=== PATIENT | female | born 1965 | race Caucasian/White ===

== ENCOUNTER 2023-09-29 13:19 | Emergency (ER) | payer OTHER, SELFPAY ==
[2023-09-29 13:31] VITALS: BP 154/102
[2023-09-29 13:56] LABS: % Basophils 0.7 % (0-2); % Eosinophils 0.7 % (0-6); % Immature Granulocytes 0.4 % (0-0.5); % Lymphocytes 20.4 % (20.5-51.1); % Monocytes 8.8 % (1.7-9.3); Absolute Basophils 0.1 10^3/uL (0-0.2); Absolute Eosinophils 0.1 10^3/uL (0-0.7); Absolute Lymphocytes 1.9 10^3/uL (1.2-3.4); Absolute Monocytes 0.8 10^3/uL (0.1-0.6); Absolute Neutrophils 6.4 10^3/uL (1.4-6.5); Hematocrit 40.5 % (37.0-47.0); Hemoglobin 14.5 g/dL (12.0-16.0); Mean Corp Hgb Conc. 35.8 g/dL (33.0-37.0); Mean Corpuscular Hgb 34.5 pg (27.0-31.0); Mean Corpuscular Volume 96.4 fL (81.0-99.0); Nucleated Red Blood Cells % 0.2 %; Platelet Count 230 10^3/uL (130-400); Red Cell Dist. Width 15.7 % (11.5-14.5); White Blood Cell Count 9.2 10^3/uL (4.8-10.8)
[2023-09-29 14:11] LABS: ALT (SGPT) 39 U/L (0-35); AST (SGOT) 78 U/L (14-36); Albumin 4.6 g/dl (3.5-5.0); Alkaline Phosphatase 126 U/L (38-126); Blood Urea Nitrogen 6 mg/dl (7-17); Calcium 9.9 mg/dl (8.4-10.2); Carbon Dioxide 25 mmol/L (22-30); Chloride 100 mmol/L (98-107); Glucose 140 mg/dl (70-99); Potassium 4.8 mmol/L (3.5-5.1); Sodium 133 mmol/L (135-145); Total Protein 7.5 g/dl (6.3-8.2); eGFR > 60.00
[2023-09-29 14:12] LABS: Alcohol None Detected
[2023-09-29 15:45] VITALS: BP 126/92
[2023-09-29 15:46] VITALS: BMI 25.7
[2023-09-29] MEDS: ATIVAN 1 MG IV (16:27)
[2023-09-29] MEDS: ZOFRAN 4 MG IV (16:27)
[2023-09-29] MEDS: NSS 1000 IV (16:27)
[2023-09-29 17:00] VITALS: BP 122/82
[2023-09-29 17:17] LABS: Lipase 190 U/L (23-300)
[2023-09-29 18:59] LABS: Urine Albumin Negative (Neg - Trace); Urine Bilirubin Negative (Negative); Urine Character Clear (Clear); Urine Color Yellow; Urine Glucose Negative (Negative); Urine Ketone Negative (Negative); Urine Leukocyte 2+ (Negative); Urine Nitrite Negative (Negative); Urine Occult Blood Negative (Negative); Urine Urobilinogen Negative (Neg - 1+)
[2023-09-29 19:06] LABS: Urine Red Blood Cell 0-2 /HPF (0-2); Urine Squamous Cell >30 /LPF (Few)
[2023-09-29 19:08] LABS: Urine Bacteria Moderate (Negative); Urine White Cell 16-20 /HPF (0-5)
[2023-09-29 19:11] LABS: Amphetamines Negative (Negative); Barbiturates Negative (Negative); Benzodiazepines Positive (Negative); Buprenorphine Negative (Negative); Cocaine Negative (Negative); Marijuana Negative (Negative); Methadone Negative (Negative); Methamphetamines Negative (Negative); Opiates Negative (Negative); Phencyclidine Negative (Negative); Tricyclic Antidepressants Negative (Negative)
[2023-09-29 19:39] LABS: Fentanyl, Urine Negative (Negative)
--- NOTE | 2023-09-29 20:58 | ED.GENMED ---
History of Present Illness
General
Chief Complaint: Dizziness
Source: patient
Exam Limitations: none
Time Seen by Provider: 09/29/23 15:41
Nursing documentation reviewed up to this point in time: agreed with
Travel History
Have you had any contact with someone who has COVID-19?: No
Do you have any symptoms of coronavirus? Fever > 100 degrees, chills, cough, shortness of breath, sore throat, loss of taste or smell, muscle aches, or headache?: No
History of Present Illness
History of Present Illness:
Patient to ED with complaint of unsteady gait, tremors, States she fell summer 2022, hit head during fall. States since then she has had trouble with her gait. She was evaluated at [facility] 2[facility] ago. She was sent to rehab for PT and then
discharged home. States she is not improving. Did not want to return to [facility], Brought to ED by sig other for eval. Denies fever/chills, recent illness. No n/v/d. Eating drinking, sleeping normally.
Past History
Past History
ED Past Medical History: Psychiatric and Other (Hyponatremia)
ED Past Surgical History: Other (Breast surgery)
Social History
Tobacco: Smoker
Alcohol: Daily (glass of wine)
Living: with family
Review of Systems
Review of Systems
Allergies reviewed?: Yes
All Other Systems: ROS reviewed and negative except as documented in HPI and ROS
Constitutional: Reports no symptoms
EENT: Reports no symptoms
Respiratory: Reports no symptoms
Cardiac: Reports no symptoms
ABD/GI: Reports no symptoms
: Reports no symptoms
Musculoskeletal: Reports no symptoms
Skin: Reports no symptoms
Neurological: Reports weakness and other (fine tremor (known history))
Psychiatric: Reports no symptoms
Phy Exam
General Physical Exam
General Presentation: well appearing and no apparent distress
General age: appears stated age
General Skin: warm and dry
General Habitus: normal
General Mental: alert
Cardiovascular Exam
Cardiovascular Exam: regular rate/rhythm and no edema
Pulmonary Exam
Pulmonary Exam: lungs clear and no respiratory distress
Neurological Exam
Neurological Exam: alert, oriented x3, CN II-XII intact, no motor deficits, no sensory deficits and speech normal
Musculoskeletal Exam
Musculoskeletal Exam: full ROM and neuro vasc intact
Skin Exam
Skin Exam: normal color, warm/dry and no rash
Psychiatric Exam
Psychiatric Exam: normal mood/affect
Course
Orders/Labs/Results
Orders:
Orders
09/29/23 13:38
Electrocardiogram (*1) Urgent
Reason for Study: Tachycardia
09/29/23 13:39
EKG- Treatment ONCE
09/29/23 13:47
Alcohol Urgent
Complete Blood Count/With Diff Urgent
Comprehensive Metabolic Panel Urgent
Lipase Urgent
Comment: LIPASE ADDED ON BY FLOOR 4:20PM 09-29-23
09/29/23 16:17
Add On- LAB Urgent
Tests Added?: lipase
Lorazepam [Ativan] 1 mg IV NOW STA
Ondansetron Injectable [Zofran] 4 mg IV NOW STA
09/29/23 16:18
0.9% Sodium Chloride 1000 ml [Nss] 1,000 ml IV BOLUS
09/29/23 17:27
CT Head W/o Iv Contrast Urgent
Comment:
Reason For Exam: unsteady gait
09/29/23 18:53
Fentanyl, Urine Urgent
Urinalysis Reflex To Culture Urgent
Date Specimen was Collected: 09/29/23
Time Specimen was Collected: 16:28
Urine Drug Abuse Screen Urgent
Date Specimen was Collected: 09/29/23
Time Specimen was Collected: 16:28
Urine Microscopic Reflex Cult Urgent
Urine Culture Urgent
GABRIELLA Source: U
Specimen Description:
Date Specimen was Collected: 09/29/23
Time Specimen was Collected: 16:28
Abnormal Lab Results
09/29/23 09/29/23
13:47 18:53
MCH 34.5 H pg
(27.0-31.0)
RDW 15.7 H %
(11.5-14.5)
Absolute Monos (auto) 0.8 H 10^3/uL
(0.1-0.6)
Lymphocytes % 20.4 L %
(20.5-51.1)
Sodium 133 L mmol/L
(135-145)
BUN 6 L mg/dl
(7-17)
Glucose 140 H mg/dl
(70-99)
AST 78 H U/L
(14-36)
ALT 39 H U/L
(0-35)
Leukocyte Esterase Rfl 2+ A
(Negative)
Urine WBC (Reflex) 16-20 A /HPF
(0-5)
Urine Bacteria (Reflex) Moderate A
(Negative)
U Benzodiazepines Scrn Positive H
(Negative)
09/29/23 13:47
09/29/23 13:47
Vital Signs
Initial and Last Documented VS:
Initial Vital Signs
Temp Pulse Resp BP Pulse Ox
97.5 F 124 16 154/102 98
09/29/23 13:31 09/29/23 13:31 09/29/23 13:31 09/29/23 13:31 09/29/23 13:31
Last Documented Vital Signs
Temp Pulse Resp BP Pulse Ox
97.5 F 96 20 122/82 99
09/29/23 13:31 09/29/23 18:53 09/29/23 17:15 09/29/23 17:00 09/29/23 17:45
*Radiology
Radiology exam reviewed: radiology read reviewed
*Pulse Oximetry
Patient hypoxic: no
*Critical Care Note
Total Time (30-74mins, 75-104mins- exclusive of procedures): Not Applicable
ED Attending Note
-
Portions of this chart may have been created with voice recognition software.� Occasional wrong word or��sound alike� substitutions may have occurred due to the inherent limitations of voice recognition software.
Discharge Plan
Departure
Patient Disposition: Home (Routine Discharge)
Date of Disposition: 09/29/23
Time of Disposition: 19:38
Patient with high blood pressure during this ER visit?: No
Condition: Good
Covid-19: Not Applicable
Discharge Problem:
Weakness
Instructions: Weakness
Prescriptions:
New
lorazepam [Ativan] 0.5 mg tablet
0.5 mg PO BID PRN (Reason: anxiety) Qty: 3 0RF
No Action
No Meds [No Current Medications]
0
ketorolac 10 MG tablet
10 mg PO Q6HPRN PRN (Reason: pain) Qty: 20 0RF
levofloxacin 500 MG tablet
500 mg PO DAILY Qty: 10 0RF
hydrocodone-acetaminophen [Vicodin] 1 EACH tablet
1 ea PO Q6H PRN (Reason: pain) Qty: 15 0RF
Referrals:
Fernando Topete MD [Active] - Call in 1-3 days for appt
Sue Espinal DO [Family Provider] - Tomorrow
Interventions
Interventions:
ED- Fall Risk Assessment Last Done: 09/29/23 15:40
*ED COVID-19 Vaccine History Last Done: 09/29/23 13:31
*Nursing Disposition Last Done: 09/29/23 19:49
ED- Neurological Assessment Last Done: 09/29/23 15:40
ED Swallowing Screen Last Done: 09/29/23 17:19
Discharge Date and Time
Discharge Date/Time: 09/29/23 19:54
Print Language: KHMER
== END 2023-09-29 19:54 | disposition home or self-care (01) ==
LOC: EMR 13:19
PROVIDERS: Emergency Medicine; Nurse Practitioner; EMERGENCY PHYSICIAN Emergency Medicine; FAMILY PHYSICIAN Family Medicine
DX: R53.1 Weakness (principal); R42 Dizziness and giddiness; R25.1 Tremor, unspecified; R26.81 Unsteadiness on feet; F17.200 Nicotine dependence, unspecified, uncomplicated
CPT/HCPCS: 99285; 96374; 96375; 96361; 70450; 80053; 80306; 80307; 81003; 81015; 82077; 83690; 85025; 87086; 93005

== ENCOUNTER 2023-12-20 11:47 | Emergency (ER) | payer OTHER, SELFPAY ==
[2023-12-20 11:52] VITALS: BP 143/91
[2023-12-20 12:03] VITALS: BP 127/86
[2023-12-20] MEDS: NSS 1000 IV (12:46)
[2023-12-20] MEDS: TORADOL 15 MG IV (12:46)
[2023-12-20 12:53] LABS: % Basophils 0.6 % (0-2); % Eosinophils 0.6 % (0-6); % Immature Granulocytes 0.6 % (0-0.5); % Lymphocytes 24.8 % (20.5-51.1); % Monocytes 9.1 % (1.7-9.3); % Neutrophils 64.3 % (42.2-75.2); Absolute Lymphocytes 1.6 10^3/uL (1.2-3.4); Absolute Monocytes 0.6 10^3/uL (0.1-0.6); Absolute Neutrophils 4.2 10^3/uL (1.4-6.5); Hematocrit 39.2 % (37.0-47.0); Hemoglobin 14.3 g/dL (12.0-16.0); Mean Corp Hgb Conc. 36.5 g/dL (33.0-37.0); Mean Corpuscular Hgb 32.6 pg (27.0-31.0); Mean Corpuscular Volume 89.5 fL (81.0-99.0); Nucleated Red Blood Cells % 0 %; Platelet Count 252 10^3/uL (130-400); Red Blood Cell Count 4.38 10^6/uL (4.20-5.40); Red Cell Dist. Width 11.9 % (11.5-14.5); White Blood Cell Count 6.6 10^3/uL (4.8-10.8)
--- NOTE | 2023-12-20 12:54 | ED.GENMED ---
History of Present Illness
General
Chief Complaint: Chest Pain
Time Seen by Provider: 12/20/23 12:22
History of Present Illness
History of Present Illness:
58-year-old female with history of tobacco abuse presents to the emergency department for evaluation of pain and swelling to the left upper quadrant of the abdomen for the past 4 days. Pain is worse with movement and worse with deep breathing.
Denies any fevers, chills, sweats, nausea, vomiting, or diarrhea. Prior abdominal surgery includes tubal ligation. She is also concerned for generalized bloating to the abdomen is ongoing for quite some time and states that her primary care
physician was going to send her for an ultrasound for this. Denies any acute traumatic injuries to the abdomen. Does endorse urinary urgency
Past History
Past History
ED Past Medical History: Psychiatric and Other (Hyponatremia)
ED Past Surgical History: Other (Breast surgery)
Social History
Tobacco: Smoker
Alcohol: Daily (glass of wine)
Living: with family
Review of Systems
Review of Systems
Allergies reviewed?: Yes
All Other Systems: ROS reviewed and negative except as documented in HPI and ROS
Phy Exam
Physical Exam
Physical Exam:
GEN: Well appearing, NAD, WDWN
Eyes: PERRLA, EOMs intact, no scleral icterus
HENT: NCAT, oral mucosa moist
Lungs: CTAB, no wheezes, rales, rhonchi, normal chest wall excursion
Cardiac: RRR, no M/R/G, no peripheral edema. Radial pulses 2+ bilat
Abdomen: Abdomen is diffusely soft with tenderness to the left flank superficially to the floating ribs with palpable soft tissue swelling, no masses, no other abdominal tenderness
Neuro: AO x 3
MSK: No gross deformity or ecchymosis. No edema. No digital clubbing
Skin: No rashes, petechiae. Normal color, no pallor or jaundice.
Psych: Calm, cooperative, proper hygiene
Scores
Heart Score for Chest Pain Patients
STEMI patient?: Not applicable
History: Slightly or Non-Suspicious
ECG: Normal
Age: </= 45 years
Risk Factors: No Risk Factors
Troponin: </= Normal Limit
Heart Score for Chest Pain Patients: 0
Heart Score Risk: 2.5% MACE over next 6 weeks
Course
Orders/Labs/Results
Orders:
Orders
12/20/23 11:57
Electrocardiogram (*1) Urgent
Reason for Study: Shortness of Breath
EKG- Treatment ONCE
12/20/23 12:38
CT Abd/Pel (IV only)-DH only Urgent
Comment:
Reason For Exam: L flank pain
0.9% Sodium Chloride 1000 ml [Nss] 1,000 ml IV BOLUS
Ketorolac [Toradol] 15 mg IV NOW STA
12/20/23 12:44
Complete Blood Count/With Diff Urgent
Comprehensive Metabolic Panel Urgent
12/20/23 14:55
Urinalysis Reflex To Culture Urgent
Date Specimen was Collected: 12/20/23
Time Specimen was Collected: 14:53
Urine Microscopic Reflex Cult Urgent
Urine Culture Urgent
GABRIELLA Source: U
Specimen Description:
Date Specimen was Collected: 12/20/23
Time Specimen was Collected: 14:53
Abnormal Lab Results
12/20/23 12/20/23
12:44 14:55
MCH 32.6 H pg
(27.0-31.0)
Immature Gran % 0.6 H %
(0-0.5)
Sodium 129 L mmol/L
(135-145)
Carbon Dioxide 21 L mmol/L
(22-30)
BUN 5 L mg/dl
(7-17)
Glucose 115 H mg/dl
(70-99)
AST 38 H U/L
(14-36)
Leukocyte Esterase Rfl 1+ A
(Negative)
12/20/23 12:44
12/20/23 12:44
Vital Signs
Initial and Last Documented VS:
Initial Vital Signs
Temp Pulse Resp BP Pulse Ox
97.8 F 116 20 143/91 97
12/20/23 11:52 12/20/23 11:52 12/20/23 11:52 12/20/23 11:52 12/20/23 11:52
Last Documented Vital Signs
Temp Pulse Resp BP Pulse Ox
97.8 F 95 22 122/87 97
12/20/23 11:52 12/20/23 15:00 12/20/23 15:00 12/20/23 15:00 12/20/23 14:00
MDM/Problems Addressed
MDM/Problems Addressed:
58-year-old female presents with flank pain. She has easily reproduced pain superficially overlying the left floating ribs. Imaging reveals no acute pathology, likely musculoskeletal/chest wall strain. NSAIDs did provide temporary relief. Will
prescribe a course of NSAIDs and recommend primary care follow-up for any persistent symptoms
*Critical Care Note
Total Time (30-74mins, 75-104mins- exclusive of procedures): Not Applicable
ED Attending Note
-
Portions of this chart may have been created with voice recognition software.� Occasional wrong word or��sound alike� substitutions may have occurred due to the inherent limitations of voice recognition software.
Discharge Plan
Departure
Patient Disposition: Home (Routine Discharge)
Date of Disposition: 12/20/23
Time of Disposition: 15:17
Patient with high blood pressure during this ER visit?: No
Discharge Problem:
Abdominal wall pain in left flank
Instructions: Flank Pain ED
Prescriptions:
New
diclofenac sodium 75 mg tablet,delayed release (DR/EC)
75 mg PO BID Qty: 20 0RF
No Action
No Meds [No Current Medications]
0
ketorolac 10 MG tablet
10 mg PO Q6HPRN PRN (Reason: pain) Qty: 20 0RF
levofloxacin 500 MG tablet
500 mg PO DAILY Qty: 10 0RF
hydrocodone-acetaminophen [Vicodin] 1 EACH tablet
1 ea PO Q6H PRN (Reason: pain) Qty: 15 0RF
lorazepam [Ativan] 0.5 mg tablet
0.5 mg PO BID PRN (Reason: anxiety) Qty: 3 0RF
Referrals:
Sue Espinal DO [Family Provider] -
Activity Restrictions/Additional Instructions:
Follow-up with your primary doctor pain persists
Interventions
Interventions:
*Risk Screen - Suicide Last Done: 12/20/23 11:49
*General Assessment Last Done: 12/20/23 11:49
*Neglect/Abuse Screening Last Done: 12/20/23 11:49
*ED COVID-19 Vaccine History Last Done: 12/20/23 11:49
ED- Cardiac Assessment Last Done: 12/20/23 12:06
Discharge Date and Time
Print Language: BOTSWANAN
[2023-12-20 13:00] VITALS: BP 102/84
[2023-12-20 13:07] LABS: ALT (SGPT) 31 U/L (0-35); AST (SGOT) 38 U/L (14-36); Albumin 3.9 g/dl (3.5-5.0); Alkaline Phosphatase 119 U/L (38-126); Blood Urea Nitrogen 5 mg/dl (7-17); Calcium 9.4 mg/dl (8.4-10.2); Carbon Dioxide 21 mmol/L (22-30); Chloride 100 mmol/L (98-107); Glucose 115 mg/dl (70-99); Sodium 129 mmol/L (135-145); Total Bilirubin 0.8 mg/dl (0.2-1.3); Total Protein 6.3 g/dl (6.3-8.2); eGFR > 60.00
[2023-12-20 14:00] VITALS: BP 120/77
[2023-12-20 15:00] VITALS: BP 122/87
[2023-12-20 15:10] LABS: Urine Albumin Trace (Neg - Trace); Urine Bilirubin Negative (Negative); Urine Character Clear (Clear); Urine Color Yellow; Urine Glucose Negative (Negative); Urine Ketone Negative (Negative); Urine Leukocyte 1+ (Negative); Urine Nitrite Negative (Negative); Urine Occult Blood Negative (Negative); Urine Specific Gravity 1.005 (<1.030); Urine Urobilinogen Negative (Neg - 1+); Urine pH 6.5 (5.0-9.0)
[2023-12-20 15:21] LABS: Urine Squamous Cell >30 /LPF (Few)
[2023-12-20 15:22] LABS: Urine Red Blood Cell 0-2 /HPF (0-2)
== END 2023-12-20 15:23 | disposition home or self-care (01) ==
LOC: EMR 11:47
PROVIDERS: Physician Assistant; EMERGENCY PHYSICIAN Emergency Medicine; FAMILY PHYSICIAN Family Medicine
DX: R10.12 Left upper quadrant pain (principal); F17.200 Nicotine dependence, unspecified, uncomplicated
CPT/HCPCS: 99284; 96374; 96361; 74177; 80053; 81003; 81015; 85025; 87086; 93005; Q9967

== ENCOUNTER 2024-05-06 23:17 | Observation (INO) | payer OTHER, SELFPAY ==
[2024-05-06 16:56] VITALS: BP 131/95
[2024-05-06 17:34] VITALS: BP 121/89
[2024-05-06 18:00] VITALS: BP 121/77
--- NOTE | 2024-05-06 18:20 | ED.GENMED ---
History of Present Illness
General
Chief Complaint: Breathing Problem
Source: patient
Exam Limitations: none
Time Seen by Provider: 05/06/24 18:00
History of Present Illness
History of Present Illness:
This is a 58 year old female that comes in with c/o SOB. States that her sister passed in February and prior to this she had stopped drinking. States that at first it was 2 glasses of wine and the it increased to daily. States that she went to see
the PCP today as she is SOB and can't take a deep breath. States that this has been going on for a month. States that she also has pain in the right shoulder area. State she had diarrhea today but she feels that this is form drinking. Denies any
fever, chills, chest pain, abd pain, nausea, vomiting, headache, dizziness, urinary burning.
Past History
Past History
ED Past Medical History: Psychiatric (Anxiety, Bipolar) and Other (Hyponatremia); Negative Asthma, HTN, Hypercholesterolemia or NIDDM
ED Past Surgical History: Gynecological (Tubal) and Other (Breast surgery, Monty lumpectomy)
Social History
Tobacco: Smoker
Alcohol: Daily (Wine 6 glasses)
Personal:
Living: alone
Review of Systems
Review of Systems
All Other Systems: ROS reviewed and negative except as documented in HPI and ROS
Constitutional: Reports no symptoms; Denies fever or chills
EENT: Reports no symptoms
Respiratory: Reports trouble breathing; Denies cough
Cardiac: Reports no symptoms; Denies chest pain
ABD/GI: Reports diarrhea; Denies abdominal pain, nausea or vomiting
: Reports no symptoms; Denies dysuria, frequency or urgency
Musculoskeletal: Reports other (Right posterior shoulder pain)
Skin: Reports no symptoms
Neurological: Reports no symptoms; Denies dizzy or headache
Psychiatric: Reports no symptoms
Phy Exam
General Physical Exam
General Presentation: mild distress
General age: appears stated age
General Skin: warm and dry
General Habitus: normal
General Mental: alert
General Hydration: dry mucous membranes
ENT Exam
ENT Exam: TM's normal, pharynx normal and neck supple
Eye Exam
Eye Exam: EOMI
Cardiovascular Exam
Cardiovascular Exam: regular rate/rhythm, no edema and normal peripheral pulses
Pulmonary Exam
Pulmonary Exam: lungs clear, no respiratory distress, no rales, chest non tender, no crackles, no rhonchi, no wheezing and other (Occasional dry cough noted)
Gastrointestinal Exam
Gastrointestinal Exam: normal bowel sounds, non tender, soft, no organomegaly, no pulsatile mass and non distended
Musculoskeletal Exam
Musculoskeletal Exam: full ROM and no edema
Skin Exam
Skin Exam: normal color, warm/dry, no rash and no petechia
Psychiatric Exam
Psychiatric Exam: normal mood/affect
Scores
Heart Failure Risk
Heart Failure Risk Score: Not Applicable
Course
Orders/Labs/Results
Orders:
Orders
05/06/24 17:04
EKG [Electrocardiogram (*1)] Urgent
Reason for Study: Shortness of Breath
EKG- Treatment ONCE
05/06/24 18:19
CT Chest Pe Study Urgent
Comment:
Reason For Exam: SOB, Can't take a deep breath
05/06/24 18:20
0.9% Sodium Chloride 1000 ml [Nss] 1,000 ml IV BOLUS
Lorazepam [Ativan] 1 mg IV NOW STA
05/06/24 18:33
Alcohol Urgent
Complete Blood Count/With Diff Urgent
Comprehensive Metabolic Panel Urgent
Lipase Urgent
Comment: ADD ON
Prothrombin Time Urgent
Troponin I Urgent
05/06/24 19:31
Add On- LAB Urgent
Tests Added?: Lipase
Abnormal Lab Results
05/06/24
18:33
MCH 35.0 H pg
(27.0-31.0)
Sodium 129 L mmol/L
(135-145)
Carbon Dioxide 19 L mmol/L
(22-30)
BUN 2 L mg/dl
(7-17)
Creatinine 0.5 L mg/dL
(0.6-1.0)
Glucose 114 H mg/dl
(70-99)
AST 117 H U/L
(14-36)
ALT 71 H U/L
(0-35)
Alkaline Phosphatase 146 H U/L
(38-126)
05/06/24 18:33
05/06/24 18:33
Hyponatremia, Carbon dioxide low. Glucose nonfasting. AST/ALT elevation. Alk phos elevation. Alcohol negative, Troponin <0.012, PT 12.3 with INR 0.87
Vital Signs
Initial and Last Documented VS:
Initial Vital Signs
Temp Pulse Resp BP Pulse Ox
97.2 F 105 26 131/95 100
05/06/24 16:56 05/06/24 16:56 05/06/24 16:56 05/06/24 16:56 05/06/24 16:56
Last Documented Vital Signs
Temp Pulse Resp BP Pulse Ox
97.2 F 89 35 121/77 100
05/06/24 16:56 05/06/24 18:45 05/06/24 18:45 05/06/24 18:00 05/06/24 18:15
MDM/Problems Addressed
Differential Diagnosis Includes:
PE, Diabetes, PNA,
MDM/Problems Addressed:
This is a 58 year old female that comes in with c/o SOB. States that this has been going on for about a month.States that she has right shoulder pain and she can't take a deep breath,
Will check labs, CT chest, Give Ativan to relax patient.
Back into see patient. Patient states that she feels a little better. States that she still has the shakes and is SOB. Explained that her Sodium is low and that she is most likely detoxing as she has no alcohol in her system. Will admit. Hospitalist
notified.
Chronic conditions affecting care:
NA
Acute Exacerbation and/or Progression of Chronic Illness:
NA
*Radiology
Radiology exam reviewed: radiology read reviewed (CT- No evidence of pulmonary embolism. No active pulmonary disease. )
*Pulse Oximetry
Patient hypoxic: no
*EKG
Interpreted by ED Provider?: NA
Rate: EKG- N/A
*Drain Cleaner Interpretation
Rate: normal
Heart Rate: 97
Rhythm: sinus
*Critical Care Note
Total Time (30-74mins, 75-104mins- exclusive of procedures): Not Applicable
ED Attending Note
-
Portions of this chart may have been created with voice recognition software.� Occasional wrong word or��sound alike� substitutions may have occurred due to the inherent limitations of voice recognition software.
Discharge Plan
Departure
Patient Disposition: Admit
Date of Disposition: 05/06/24
Time of Disposition: 22:16
Admit to: Med/Surg
Presentation/result/management discussed w/ accepting MD/DO: Hospitalist
Condition: Good
Covid-19: Not Applicable
Discharge Problem:
Acute hyponatremia, SOB (shortness of breath), Alcohol withdrawal
Prescriptions:
No Action
No Meds [No Current Medications]
0
ketorolac 10 MG tablet
10 mg PO Q6HPRN PRN (Reason: pain) Qty: 20 0RF
levofloxacin 500 MG tablet
500 mg PO DAILY Qty: 10 0RF
hydrocodone-acetaminophen [Vicodin] 1 EACH tablet
1 ea PO Q6H PRN (Reason: pain) Qty: 15 0RF
lorazepam [Ativan] 0.5 mg tablet
0.5 mg PO BID PRN (Reason: anxiety) Qty: 3 0RF
diclofenac sodium 75 mg tablet,delayed release (DR/EC)
75 mg PO BID Qty: 20 0RF
Referrals:
Sue Espinal, [Family Provider] -
Interventions
Interventions:
*Risk Screen - Suicide Last Done: 05/06/24 16:56
*General Assessment Last Done: 05/06/24 16:56
*Neglect/Abuse Screening Last Done: 05/06/24 16:56
ED- Fall Risk Assessment Last Done: 05/06/24 18:46
*ED COVID-19 Vaccine History Last Done: 05/06/24 16:56
ED- Cardiac Assessment Last Done: 05/06/24 18:46
ED- Pulmonary Assessment Last Done: 05/06/24 18:46
Discharge Date and Time
Print Language: EQUATORIAL GUINEAN
[2024-05-06] MEDS: ATIVAN 1 MG IV (18:36)
[2024-05-06] MEDS: NSS 1000 IV (18:37)
[2024-05-06 18:38] LABS: % Basophils 0.8 % (0-2); % Eosinophils 0.8 % (0-6); % Immature Granulocytes 0.4 % (0-0.5); % Lymphocytes 23.3 % (20.5-51.1); % Monocytes 8.3 % (1.7-9.3); % Neutrophils 66.4 % (42.2-75.2); Absolute Basophils 0.1 10^3/uL (0-0.2); Absolute Eosinophils 0.1 10^3/uL (0-0.7); Absolute Lymphocytes 1.7 10^3/uL (1.2-3.4); Absolute Monocytes 0.6 10^3/uL (0.1-0.6); Absolute Neutrophils 4.9 10^3/uL (1.4-6.5); Hemoglobin 14.8 g/dL (12.0-16.0); Mean Corp Hgb Conc. 36.1 g/dL (33.0-37.0); Mean Corpuscular Volume 96.9 fL (81.0-99.0); Mean Platelet Volume 8.8 fL (7.4-10.4); Nucleated Red Blood Cells % 0 %; Platelet Count 214 10^3/uL (130-400); Red Blood Cell Count 4.23 10^6/uL (4.20-5.40); Red Cell Dist. Width 12.6 % (11.5-14.5); White Blood Cell Count 7.4 10^3/uL (4.8-10.8)
[2024-05-06 18:46] VITALS: BMI 28.2
[2024-05-06 18:52] LABS: INR 0.87; PT 12.3 Sec (11.4-14.6)
[2024-05-06 18:55] LABS: ALT (SGPT) 71 U/L (0-35); AST (SGOT) 117 U/L (14-36); Albumin 4.5 g/dl (3.5-5.0); Alkaline Phosphatase 146 U/L (38-126); Blood Urea Nitrogen 2 mg/dl (7-17); Calcium 9.7 mg/dl (8.4-10.2); Carbon Dioxide 19 mmol/L (22-30); Chloride 99 mmol/L (98-107); Estimated Creatinine Clearance 95 ml/min; Glucose 114 mg/dl (70-99); Potassium 4.3 mmol/L (3.5-5.1); Sodium 129 mmol/L (135-145); Total Bilirubin 0.7 mg/dl (0.2-1.3); Total Protein 7.2 g/dl (6.3-8.2); eGFR > 60.00
[2024-05-06 18:56] LABS: Alcohol None Detected
[2024-05-06 19:01] LABS: Troponin I < 0.012 ng/ml
[2024-05-06 20:05] LABS: Lipase 134 U/L (23-300)
[2024-05-06 22:29] VITALS: BP 127/83
--- NOTE | 2024-05-06 22:30 | HPS.HSE ---
Family Physician
-
Family Physician: Sue Espinal
Chief Complaint
-
Shortness of breath
History of Present Illness
This is a 58-year-old female was a past medical history of alcohol dependence, anxiety and depression who presents to the emergency department from clinic with shortness of breath.
Patient reports that for about 1 month she has had difficulty catching her breath. She reports anxiety. She stated that she lost her sister 1 month ago and she started smoking and drinking. She has no known history of COPD. She denies any cough.
She denies any audible wheezing. She points to her chest but denies having chest pain pleuritic or otherwise. She has not been having any palpitations. She denies orthopnea PND or lower extremity swelling. Patient reports drinking 5 to 6
glasses of wine every night and she has been doing those regularly for the last 1 month. She reports ongoing anxiety but denies any prior history of DT or withdrawal seizures. She saw her psychiatrist today who asked her to follow-up with her PMD
for shortness of breath. Primary care doctor sent her to the emergency department for evaluation.
In the emergency department she was afebrile, oxygen saturation was 100% on room air. She was tachypneic to 35 but not tachycardic. Blood pressure was 121/77. She was afebrile at 97.2. ECG is sinus rhythm, ayleen 90, without any ST or T wave
changes. Troponin was negative. CBC was completely within normal limits. Electrolytes were notable for a sodium of 129 which is similar to previous. BUN/creatinine were within normal limits. Bicarb was 19. Patient had a CT chest with PE
protocol that was negative for acute PE. There was no evidence of any PE or heart strain. The patient had no other acute pulmonary process.
Medical History
Past Medical History
Past Medical History: Reports HTN, Hypercholesterolemia, NIDDM and Psychiatric (Anxiety, bipolar, alcohol dependence)
Past Surgical History: Reports Gynocological (Tubal ligation) and Other (Bilateral breast lumpectomy)
Social History
Tobacco: Smoker (5 cigarrettes / day)
Alcohol: Daily (5 - 6 glasses of wine)
Drug: None
Personal: Partner
Living: With Family
Employment: Not Employed
Family History
Family History: Not pertinent
Allergies / Home Medications
Allergies reflects when Allergies were last updated in [facility].
Home Medications with original date entered in [facility]
Allergy/Medication List:
Allergies
Allergy/AdvReac Type Severity Reaction Status Date / Time
Penicillins Allergy Unknown Rash Verified 05/06/24 17:01
Home Medications
Fluoxetine 40 mg tablet 1 tablet p.o. daily
Bupropion XL 300 mg tablet 1 tablet p.o. daily
D-amphetamine ER 25 mg tablet 1 tablet p.o. daily
Review of Systems
-
History Source: Patient
Constitutional: Reports No Symptoms
EENT: Reports No Symptoms
Respiratory: Reports Trouble Breathing
Cardiac: Reports No Symptoms
Abdomen/GI: Reports No Symptoms
: Reports No Symptoms
Musculoskeletal: Reports No Symptoms
Skin: Reports No Symptoms
Neurological: Reports No Symptoms
Endocrine: Reports No Symptoms
Hematologic/Lymphatic: Reports No Symptoms
Psych: Reports No Symptoms
Physical Exam
Vital Signs
Vital Signs
Temp Pulse Resp BP Pulse Ox
97.2 F 89 35 121/77 100
05/06/24 16:56 05/06/24 18:45 05/06/24 18:45 05/06/24 18:00 05/06/24 18:15
Physical Exam
General: Well Developed, Well Nourished and Conversant
HEENT: NormoCephalic, Anicteric, Moist mucous membranes, Atraumatic, PERRLA, [place] Conjunctivae and No Ptosis
Respiratory: Clear and Non Labored Respirations (however remains tachypneic)
Cardiac: S1/S2 and Regular Rhythm
Breast: Deferred by me
GI: Soft, Non Tender, Non Distended and Normal Bowel Sounds
Rectal: Deferred by Provider
Genito-urinary: Deferred by me
Musculoskeletal: No Clubbing, No Cyanosis and No Edema
Skin: Warm
Neuro: AO x 3
Hematologic/Lymphatic: No Lymphadenopathy
Psych: Anxious
Laboratory Results
-
05/06/24 18:33
05/06/24 18:33
Laboratory Results
PT 12.3 Sec (11.4-14.6) 05/06/24 18:33
INR 0.87 05/06/24 18:33
Total Bilirubin 0.7 mg/dl (0.2-1.3) 05/06/24 18:33
AST 117 U/L (14-36) H 05/06/24 18:33
ALT 71 U/L (0-35) H 05/06/24 18:33
Alkaline Phosphatase 146 U/L (38-126) H 05/06/24 18:33
Troponin I < 0.012 ng/ml 05/06/24 18:33
Lipase 134 U/L (23-300) 05/06/24 18:33
Data Reviewed
-
CT Scan: Report Reviewed by me
Medical Tests (Nuc Med, Echo, EKG etc): Image Personally Visualized and interpreted
Lab Data: Labs Reviewed by me
Old Records: Reviewed
Impression/Plan
-
IMPRESSION:
Patient with history of anxiety depression, alcohol dependence and chronic hyponatremia presents to the emergency department with complaint of shortness of breath and dyspnea on exertion over the last 1 month. Initial evaluation in the ED including
EKG, troponin CBC and electrolytes shows no acute findings. Had a CT of the chest with PE protocol that was negative for PE and shows no infiltrates or any other intra pulmonary disease. I suspect the patient's presentation is more consistent with
anxiety disorder that is not well-controlled and likely associated with recent grief from the loss of sister due to the coincidence of the symptoms. Unlikely CHF but cannot rule out post Takotsubo cardiomyopathy.
PLAN:
1. SOB - 1month history. No findings c/w COPD, CHF, PE at this time. No chest pain. Unlikely angina. Suspect anxiety
- admit to telemetry
- monitor rhythm x 24 hours
- echocardiogram, bnp and tsh
- ambulatory pulse oximetry
2. Hyponatremia - Na 129. Chronic. Suspect etoh dependence with tea/toast diet. Mild hypovolemia possible.
- IV fluids
- check urine osm, tsh as above, am cortisol
- free water restriction overnight.
3. ETOH dependence - Mild tremors. No prior DT/seizures
- MSAS protocol
- interested in outpatient etoh treatment, case management consult
4. Anxiety
- continue buproprion 300xr, fluoxetine 40 daily
-prn lorazepam
DVT PPX - lovenox sq
Code status - Full Code
[2024-05-06 23:28] VITALS: BP 121/81
[2024-05-06] MEDS: FLUSH (NSS) 1 FLUSH IV (23:29)
[2024-05-06 23:46] LABS: Osmolality Urine 331 mOsm/kg (300-900)
[2024-05-07] VITALS (7 sets, daily range): BP systolic 116–133; BP diastolic 68–94; PULSE 96–110; BMI 25.9
[2024-05-07 00:08] LABS: Urine Sodium 46 mmol/L (30-90)
[2024-05-07] MEDS: ATIVAN 1 MG PO ×3 (02:25→17:29)
[2024-05-07 05:34] LABS: Venous Blood Gas B.E. -1.1 mmol/L (-4 to +4); Venous Blood Gas HCO3 24.8 mmol/L (22-27); Venous Blood Gas O2 Sat % 76.9 %; Venous Blood Gas pCO2 45 mmHg (35-48); Venous Blood Gas pH 7.35 (7.32-7.43); Venous Blood Gas pO2 47 mmHg (30-50)
--- NOTE | 2024-05-07 05:34 | PTCARENOTE ---
Pt admitted to 3W at 0210. Pt aaox3, no c/o pain, and VSS. Pt scoring a 5 for MSAS (see worklist), pt given ativan per protocol. Pt instructed to call staff to use restroom. Pt oriented to room, call stuart within reach, and plan of care ongoing.
[2024-05-07 05:37] LABS: Venous Blood Gas O2 Therapy ROOM AIR
[2024-05-07 06:05] LABS: Blood Urea Nitrogen 4 mg/dl (7-17); Calcium 8.8 mg/dl (8.4-10.2); Carbon Dioxide 22 mmol/L (22-30); Chloride 103 mmol/L (98-107); Estimated Creatinine Clearance 77 ml/min; Glucose 131 mg/dl (70-99); Phosphorus 4.5 mg/dl (2.5-4.5); Potassium 4.1 mmol/L (3.5-5.1); Sodium 133 mmol/L (135-145); eGFR > 60.00
[2024-05-07 06:14] LABS: NT-proBNP 237 pg/ml
[2024-05-07 06:36] LABS: TSH 6.21 uIU/ml (0.47-4.68)
[2024-05-07 06:54] LABS: Hepatitis C Antibody Negative (Negative)
[2024-05-07 07:11] LABS: Folate 5.6 ng/ml (2.76-20); Vitamin B12 542 pg/ml (239-931)
[2024-05-07] MEDS: WELLBUTRIN XL (24 hour extended release) 300 MG PO (08:43)
[2024-05-07] MEDS: PROZAC 40 MG PO (08:43)
[2024-05-07] MEDS: FOLVITE 1 MG PO (08:43)
[2024-05-07] MEDS: THIAMINE INJECTION 200 MG IV ×2 (08:47→20:53)
--- NOTE | 2024-05-07 10:52 | CARDSERVLU ---
Echocardiogram with Lumason completed after protocol screening completed. Allergies verified.
Patent IV site: _Rt hand____
IV site flushed with 0.9% NaCl pre and post administration.
Diluted bolus method utilized to enhance visualization of ventricular grey.
Total volume given: __3.0__ mL
Patient tolerated all procedures well without complications.
--- NOTE | 2024-05-07 13:13 | W.PN.HOSP.TC ---
Today's Communication/Plan
-
Assessment / Plan
Assessment / Plan
shortness of breath, resolved
-without acute evidence
--ct without acute pulmonary disease
-hx of smoking, boyfriend smokes
--?COPD but no wheezing on exam to suspect this
-No hx of TOMAS, stop bang 0
-unlikley pHTN
-check 2d echo
alochol use disorder
-thiaimne
-folate
-msas
hyponatremia
-improving
-continue fluid restriction
awaiting 2d echo
now intrested in alcohol rehab, cm notified, bcares called
Anticipated Discharge: Within 24 hours
Subjective/Interval History
-
Date of Service: May 07, 2024
Seen and examined. No new complaints. No acute overnight events.
Objective Data
-
Labs:
Laboratory Results
05/07/24
05:22
Sodium 133 L
Potassium 4.1
Chloride 103
Carbon Dioxide 22
BUN 4 L
Creatinine 0.7
Glucose 131 H
Calcium 8.8
Vital Signs:
Vital Signs
Temp Pulse Resp BP Pulse Ox
98.1 F 116 17 124/72 94
05/07/24 07:55 05/07/24 07:55 05/07/24 07:55 05/07/24 07:55 05/07/24 07:55
Physical Exam
-
General: Well Developed and Well Nourished
HEENT: Normocephalic and Atraumatic
Respiratory: Clear to Auscultation
GI: Soft, Nontender, Nondistended and Normal Bowel Sounds
Musculoskeletal: No Clubbing, No Cyanosis and No Edema
Neuro: Awake, Alert, Oriented and AO x 3
Psych: Calm
[2024-05-07 13:57] LABS: Urine Albumin Negative (Neg - Trace); Urine Bilirubin Negative (Negative); Urine Character Clear (Clear); Urine Color Yellow; Urine Glucose Negative (Negative); Urine Ketone Negative (Negative); Urine Leukocyte Trace (Negative); Urine Nitrite Negative (Negative); Urine Occult Blood Negative (Negative); Urine Specific Gravity 1.015 (<1.030); Urine Urobilinogen Negative (Neg - 1+)
[2024-05-07 14:25] LABS: Amphetamines Positive (Negative); Barbiturates Negative (Negative); Benzodiazepines Positive (Negative); Buprenorphine Negative (Negative); Cocaine Negative (Negative); Marijuana Negative (Negative); Methadone Negative (Negative); Methamphetamines Negative (Negative); Opiates Negative (Negative); Phencyclidine Negative (Negative); Tricyclic Antidepressants Negative (Negative)
[2024-05-07 14:54] LABS: Fentanyl, Urine Negative (Negative)
[2024-05-07 15:10] LABS: Urine Squamous Cell 16-20 /LPF (Few)
[2024-05-07 15:11] LABS: Urine Amorphous Seen; Urine Red Blood Cell 0-2 /HPF (0-2)
--- NOTE | 2024-05-07 17:21 | CM ---
Alert awake oriented patient who lives with her SO Angel Luis who lives in a 1 story home with 0 steps to enter. She is independent in all activities of daily living.Offered VN she declined.Observation letter given explained. Pt declined to sign letter.Pt
said she will accpet in or out pt alcohol rehab. Boy saw pt from [facility] .
[facility]
Ph[facility]
PCP Dr Espinal
PLAN In or out pt alcohol Rehab
[2024-05-07] MEDS: LOVENOX 40 MG SC (17:29)
[2024-05-08 03:00] VITALS: BP 120/83
[2024-05-08 07:00] VITALS: BP 128/77
[2024-05-08] MEDS: THIAMINE INJECTION 200 MG IV ×2 (09:13→19:55)
[2024-05-08] MEDS: PROZAC 40 MG PO (09:14)
[2024-05-08] MEDS: ATIVAN 1 MG PO ×5 (09:14→17:30)
[2024-05-08] MEDS: FOLVITE 1 MG PO (09:14)
[2024-05-08] MEDS: WELLBUTRIN XL (24 hour extended release) 300 MG PO (09:14)
[2024-05-08 11:00] VITALS: BP 117/79
--- NOTE | 2024-05-08 11:29 | CM ---
Received message from attending that patient is medically stable for discharge. Met with patient who confirmed that she met with Terrie and will be going to [facility] (day partial) in [place]. She denied any issues or concerns. She stated that her
spouse will be in to pick her up and transport her home.
Plan: Case management will continue to follow and assist with discharge planning. Home with f/u at [facility].
[2024-05-08] MEDS: NON-FORMULARY ITEM 1 UNIT PO (12:50)
--- NOTE | 2024-05-08 13:35 | W.PN.HOSP.TC ---
Today's Communication/Plan
-
Discharge home
As needed Combivent started
Outpatient pulmonary follow-up
More than 30 minutes spent in discharge including
Final examination of the patient
Summarizing hospital stay
Instructions for continuing care to all relevant caregivers
Preparation of discharge records, prescriptions, and referral forms
Total time spent (in minutes): 33mins
Assessment / Plan
Assessment / Plan
shortness of breath, resolved
-without acute evidence
--ct without acute pulmonary disease
-hx of smoking, boyfriend smokes
--?COPD but no wheezing on exam to suspect this
-No hx of TOMAS, stop bang 0
-unlikley pHTN
alochol use disorder
-thiaimne
-folate
-msas
hyponatremia
-improving
-continue fluid restriction
awaiting 2d echo
now intrested in alcohol rehab, cm notified, bcares called
-Outpatient follow-up with [facility]
Discharge home
Anticipated Discharge: Today
Subjective/Interval History
-
Date of Service: May 08, 2024
Seen and examined. No new complaints. No acute overnight events.
No evidence of alcohol withdrawal
Denies anxiety agitation tremors hallucinations
Objective Data
-
Vital Signs:
Vital Signs
Temp Pulse Resp BP Pulse Ox
97.8 F 106 20 117/79 96
05/08/24 13:19 05/08/24 13:19 05/08/24 11:00 05/08/24 11:00 05/08/24 11:00
I&O
05/07/24 05/08/24 05/09/24
06:59 06:59 06:59
Intake Total 240 / 240
Balance 240 / 240
Physical Exam
-
General: Well Developed and Well Nourished
HEENT: Normocephalic and Atraumatic
Respiratory: Clear to Auscultation
Cardiac: Regular Rhythm and S1/S2
Skin: Warm
Psych: Calm
--- NOTE | 2024-05-08 13:38 | W.DCSUMMARY ---
Addendum entered and electronically signed by Matt Henning MD 05/09/24 11:03:
Date of discharge 05/09/2024
Original Note:
Discharge Summary
Discharge Data
Date of Admission: 05/06/24
Date of Discharge: 05/08/24
-
Pending Results: No
Hospital Course
58-year-old female was a past medical history of alcohol dependence, anxiety and depression
Presented with shortness of breath unclear as to etiology however did not require oxygen. Long-term smoker with prolonged secondhand smoke presents as well. Will require outpatient pulmonary follow-up. No wheezing therefore no steroids were
indicated. Did not appear volume overloaded therefore did not require Lasix. Will require outpatient pulmonary follow-up with pulmonary function testing. Start on as need combivent
In terms of the hyponatremia this is likely believed to be secondary to alcohol use. Improved with fluid restriction. Continue 48 ounce fluid restriction. Avoid alcohol use. Continue thiamine folate. [facility] follow up with
[facility].
Chest CT
IMPRESSION:
No evidence of pulmonary embolism.
No active pulmonary disease.
2d echo CONCLUSIONS
Normal biventricular size and systolic function without regional wall motion
abnormality. LVEF 65-70%.
No significant valvular disease.
Mildly dilated aortic root (3.8 cm) and ascending aorta (3.9 cm).
No prior study available for comparison.
Discharge Plan
-
Patient Disposition: Home (Routine Discharge)
Discharge Diagnosis/Procedures: Shortness of breath
Hyponatremia
Condition: Good
Diet: As tolerated
Activity: As tolerated
Activity Restrictions/Additional Instructions:
Presented with shortness of breath unclear as to etiology however did not require oxygen. Long-term smoker with prolonged secondhand smoke presents as well. Will require outpatient pulmonary follow-up. No wheezing therefore no steroids were
indicated. Did not appear volume overloaded therefore did not require Lasix. Will require outpatient pulmonary follow-up with pulmonary function testing. Start on as need combivent
In terms of the hyponatremia this is likely believed to be secondary to alcohol use. Improved with fluid restriction. Continue 48 ounce fluid restriction. Avoid alcohol use. Continue thiamine folate. Was evaluated by [facility], to follow up with
[facility].
Chest CT
IMPRESSION:
No evidence of pulmonary embolism.
No active pulmonary disease.
2d echo CONCLUSIONS
Normal biventricular size and systolic function without regional wall motion
abnormality. LVEF 65-70%.
No significant valvular disease.
Mildly dilated aortic root (3.8 cm) and ascending aorta (3.9 cm).
No prior study available for comparison.
Referrals:
Sue Espinal DO [Family Provider] -
Darrion Thornton MD [Active] - in two to four weeks
Prescriptions:
New
thiamine HCl (vitamin B1) 100 mg Tablet
100 mg PO BID Qty: 60 0RF
folic acid 1 mg Tablet
1 mg PO DAILY Qty: 30 0RF
Combivent Respimat 20-100 mcg/actuation mist
1 puff inhalation Q6H PRN (Reason: shortness of breath or wheezing) Qty: 4 0RF
Continued
fluoxetine 40 mg capsule
40 mg PO DAILY
dextroamphetamine-amphetamine 25 mg capsule,extended release 24hr
25 mg PO DAILY
Rx Instructions:
05/07/24: filled #30 capsules/30 days on 04/28/24 at [facility] #[id number]
bupropion HCl 300 mg tablet extended release 24 hr
300 mg PO DAILY
cholecalciferol (vitamin D3) [Vitamin D3] 25 mcg (1,000 unit) Capsule
25 mcg PO DAILY
Changed
hydroxyzine pamoate 25 mg capsule
25 mg PO DAILY Qty: 10 0RF
Discharge Orders:
Discharge Patient (As Directed); Ordered 05/08/24
Ordered By: Matt Henning
Discharge Date and Time
Print Language: MONGOLIAN
[2024-05-08 15:00] VITALS: BP 130/84
[2024-05-08] MEDS: SENOKOT-S 1 TABLET PO (17:30)
[2024-05-08] MEDS: LOVENOX 40 MG SC (17:30)
[2024-05-08 23:00] VITALS: BP 117/81
[2024-05-09 07:29] VITALS: BP 121/83
[2024-05-09] MEDS: PROZAC 40 MG PO (07:34)
[2024-05-09] MEDS: WELLBUTRIN XL (24 hour extended release) 300 MG PO (07:34)
[2024-05-09] MEDS: THIAMINE INJECTION 200 MG IV (07:34)
[2024-05-09] MEDS: FOLVITE 1 MG PO (07:34)
[2024-05-09 07:42] VITALS: BP 125/87; PULSE 108
[2024-05-09 07:45] VITALS: BP 130/83; PULSE 106
[2024-05-09 07:47] VITALS: BP 130/83; PULSE 106
[2024-05-09 08:30] VITALS: BP 124/85
--- NOTE | 2024-05-09 10:58 | W.PN.HOSP.TC ---
Today's Communication/Plan
-
DC home
More than 30 minutes spent in discharge including
Final examination of the patient
Summarizing hospital stay
Instructions for continuing care to all relevant caregivers
Preparation of discharge records, prescriptions, and referral forms
Total time spent (in minutes): 33mins
Assessment / Plan
Assessment / Plan
shortness of breath, resolved
-without acute evidence
--ct without acute pulmonary disease
-hx of smoking, boyfriend smokes
--?COPD but no wheezing on exam to suspect this
-No hx of TOMAS, stop bang 0
-unlikley pHTN
DC held due to high MSAS needing ativan
-Today per bedside nursing stgaff and MSAS documentation of 2, and Ms,. Narda saying she feels betgter, some tremors, she woul dlike to go home
-DC home
alochol use disorder
-thiaimne
-folate
-msas
hyponatremia
-improving
-continue fluid restriction
awaiting 2d echo
now intrested in alcohol rehab, cm notified, bcares called
-Outpatient follow-up with [facility]
Discharge home
Anticipated Discharge: Today
Subjective/Interval History
-
Date of Service: May 09, 2024
seen and examined
no new complaints
no acute overnight events
Objective Data
-
Vital Signs:
Vital Signs
Temp Pulse Resp BP Pulse Ox
97.8 F 84 16 121/83 97
05/09/24 07:29 05/09/24 07:29 05/09/24 07:29 05/09/24 07:29 05/09/24 07:29
I&O
05/08/24 05/09/24 05/10/24
06:59 06:59 06:59
Intake Total 240 / 240 840 / 840 480 / 480
Balance 240 / 240 840 / 840 480 / 480
Physical Exam
-
General: Well Developed and Well Nourished
HEENT: Normocephalic and Atraumatic
Respiratory: Clear to Auscultation
Cardiac: Regular Rhythm and S1/S2
GI: Soft, Nontender, Nondistended and Normal Bowel Sounds
Neuro: Awake, Alert, Oriented and AO x 3
Psych: Calm
== END 2024-05-09 12:00 | disposition home or self-care (01) ==
LOC: 3 WEST ACU 23:17
PROVIDERS: Clinical Nurse Specialist Family Health; ADMITTING PHYSICIAN Internal Medicine; ATTENDING PHYSICIAN Hospitalist; EMERGENCY PHYSICIAN Emergency Medicine; FAMILY PHYSICIAN Family Medicine
DX: E87.1 Hypo-osmolality and hyponatremia (principal); R06.02 Shortness of breath; M25.511 Pain in right shoulder; R19.7 Diarrhea, unspecified; F17.200 Nicotine dependence, unspecified, uncomplicated; F31.9 Bipolar disorder, unspecified; F41.9 Anxiety disorder, unspecified; J44.9 Chronic obstructive pulmonary disease, unspecified; R25.1 Tremor, unspecified; F10.239 Alcohol dependence with withdrawal, unspecified; E78.00 Pure hypercholesterolemia, unspecified; I10 Essential (primary) hypertension; E11.9 Type 2 diabetes mellitus without complications; Z88.0 Allergy status to penicillin
CPT/HCPCS: 71275; 80048; 80053; 80306; 80307; 81003; 81015; 82077; 82533; 82607; 82746; 82805; 83690; 83735; 83880; 83935; 84100; 84300; 84443; 84484; 85025; 85610; 86803; 87798; 93005; 93306; 94761; 96361; 96374; 99285; 99406; G0378; Q9950; Q9967

== ENCOUNTER 2024-10-06 16:14 | Inpatient (IN) | payer MEDICARE, OTHER, SELFPAY ==
[2024-10-06] VITALS (12 sets, daily range): BP systolic 105–148; BP diastolic 69–133; BMI 25.7; BMI 27.1
[2024-10-06 13:52] LABS: % Basophils 0.6 % (0-2); % Eosinophils 0.1 % (0-6); % Immature Granulocytes 0.3 % (0-0.5); % Lymphocytes 10.2 % (20.5-51.1); % Monocytes 8.6 % (1.7-9.3); % Neutrophils 80.2 % (42.2-75.2); Absolute Lymphocytes 0.7 10^3/uL (1.2-3.4); Absolute Monocytes 0.6 10^3/uL (0.1-0.6); Absolute Neutrophils 5.5 10^3/uL (1.4-6.5); Hematocrit 41.3 % (37.0-47.0); Mean Corp Hgb Conc. 36.3 g/dL (33.0-37.0); Mean Corpuscular Hgb 34.4 pg (27.0-31.0); Mean Corpuscular Volume 94.7 fL (81.0-99.0); Mean Platelet Volume 9.2 fL (7.4-10.4); Nucleated Red Blood Cells % 0 %; Platelet Count 118 10^3/uL (130-400); Red Blood Cell Count 4.36 10^6/uL (4.20-5.40); Red Cell Dist. Width 12.7 % (11.5-14.5); White Blood Cell Count 6.9 10^3/uL (4.8-10.8)
[2024-10-06] MEDS: ATIVAN 1 MG IV ×2 (13:52→16:03)
[2024-10-06 14:02] LABS: ALT (SGPT) 135 U/L (0-35); AST (SGOT) 462 U/L (14-36); Albumin 4.2 g/dl (3.5-5.0); Alkaline Phosphatase 145 U/L (38-126); Blood Urea Nitrogen < 2 mg/dl (7-17); Calcium 9.1 mg/dl (8.4-10.2); Carbon Dioxide 23 mmol/L (22-30); Chloride 104 mmol/L (98-107); Estimated Creatinine Clearance 89 ml/min; Glucose 154 mg/dl (70-99); Lipase 103 U/L (23-300); Potassium 4.6 mmol/L (3.5-5.1); Sodium 134 mmol/L (135-145); Total Bilirubin 1.2 mg/dl (0.2-1.3); Total Protein 7.1 g/dl (6.3-8.2); eGFR > 60.00
[2024-10-06 14:05] LABS: Alcohol None Detected
[2024-10-06 14:14] LABS: Magnesium 1.6 mg/dl (1.6-2.3)
--- NOTE | 2024-10-06 14:19 | ED.GENMED ---
History of Present Illness
General
Chief Complaint: Breathing Problem
Source: patient and spouse
Exam Limitations: none
Time Seen by Provider: 10/06/24 13:44
Nursing documentation reviewed up to this point in time: agreed with
History of Present Illness
History of Present Illness:
59-year-old female smoker half a pack a day drinker 2 large glasses of wine a day bipolar disorder presents with shakiness shortness of breath cough has not smoked or drank alcohol in 3 days, states his symptoms started before she stopped drinking
and smoking but definitely worsened since that, no seizures no fever no hemoptysis she has been compliant with her psychiatric meds no fever chills
Past History
Past History
ED Past Medical History: Psychiatric (Anxiety, Bipolar) and Other (Hyponatremia); Negative Asthma, HTN, Hypercholesterolemia or NIDDM
ED Past Surgical History: Gynecological (Tubal) and Other (Breast surgery, Monty lumpectomy)
Social History
Tobacco: Smoker
Alcohol: Daily (Wine 6 glasses)
Drug: None
Personal:
Living: alone
Employment: Employed
Review of Systems
Review of Systems
All Other Systems: Not applicable
Constitutional: Reports fatigue; Denies fever or chills
EENT: Reports no symptoms
Respiratory: Reports cough and trouble breathing
Cardiac: Reports palpitations; Denies chest pain
ABD/GI: Reports nausea
: Reports no symptoms
Musculoskeletal: Reports no symptoms
Skin: Reports no symptoms
Neurological: Reports dizzy and weakness
Endocrine: Reports no symptoms
Hematologic/Lymphatic: Reports no symptoms
Psychiatric: Reports no symptoms; Denies depression, suicidal or hallucinations
Phy Exam
Physical Exam
Physical Exam:
Physical Exam
General: 59-year-old female looks older than stated age coughing strong smell of smoke tremulous
Neck: Lips are dry
Heart: Regular
Lungs: Wheeze bilateral
Abdomen: Soft not
Neuro: alert and oriented. no focal neurological deficits tremulous, oriented to person place
Skin: no rash
Psychiatric: Cooperative slightly disheveled
Extremities: no edema. no calf tenderness.
Scores
Heart Failure Risk
Heart Failure Risk Score: Not Applicable
Course
Orders/Labs/Results
Orders:
Orders
10/06/24 13:13
Electrocardiogram (*1) Urgent
Reason for Study: Shortness of Breath
EKG- Treatment ONCE
10/06/24 13:40
Alcohol Urgent
Complete Blood Count/With Diff Urgent
Comprehensive Metabolic Panel Urgent
Lipase Urgent
Magnesium Urgent
Comment: ADD ON
10/06/24 13:49
Lorazepam [Ativan] 1 mg IV NOW STA
10/06/24 13:50
Add On- LAB Urgent
Tests Added?: magnesium
0.9% Sodium Chloride 1000 ml [Nss] 1,000 ml Mvi, Adult [Multivitamin] 10 ml Thiamine Injection 100 mg IV 250 mls/hr
CR Chest - 2 Views Urgent
Comment:
Reason For Exam: sob
10/06/24 14:15
Ipratropium/Albuterol Sulfate [Duoneb] 3 ml INH R NOW STA
Ondansetron Injectable [Zofran] 4 mg IV NOW STA
Abnormal Lab Results
10/06/24
13:40
MCH 34.4 H pg
(27.0-31.0)
Plt Count 118 L 10^3/uL
(130-400)
Absolute Lymphs (auto) 0.7 L 10^3/uL
(1.2-3.4)
Neutrophils % 80.2 H %
(42.2-75.2)
Lymphocytes % 10.2 L %
(20.5-51.1)
Sodium 134 L mmol/L
(135-145)
BUN < 2 L mg/dl
(7-17)
Glucose 154 H mg/dl
(70-99)
AST 462 H U/L
(14-36)
ALT 135 H U/L
(0-35)
Alkaline Phosphatase 145 H U/L
(38-126)
10/06/24 13:40
10/06/24 13:40
Vital Signs
Initial and Last Documented VS:
Initial Vital Signs
Temp Pulse Resp Pulse Ox
98.0 F 136 16 96
10/06/24 13:10 10/06/24 13:10 10/06/24 13:10 10/06/24 13:10
Last Documented Vital Signs
Temp Pulse Resp Pulse Ox
98.0 F 136 16 96
10/06/24 13:10 10/06/24 13:10 10/06/24 13:10 10/06/24 13:10
MDM/Problems Addressed
Differential Diagnosis Includes:
Alcohol withdrawal, COPD exacerbation pneumonia electrolyte abnormality
MDM/Problems Addressed:
Tremor shortness of breath cough
Chronic conditions affecting care: COPD, Psychiatric illness and Other (Alcohol )
Acute Exacerbation and/or Progression of Chronic Illness: COPD, Psychiatric illness and Other (Alcohol)
*Radiology
Radiology exam reviewed: preliminary read by ED provider
*Pulse Oximetry
Patient hypoxic: no
*EKG
Interpreted by ED Provider?: Yes
Interpretation: abnormal
Comparison EKG: no comparison EKG present
Heart Rate: 78
Rate: normal
Rhythm: sinus
Ischemia: non-specific ST changes
*Measurement Advisor Interpretation
Rate: normal
Interpretation: normal
Heart Rate: 88
Rhythm: sinus
*Critical Care Note
Total Time (30-74mins, 75-104mins- exclusive of procedures): Not Applicable
Data Reviewed
Review of Other/Old Records Reveals: Labs, Records and Discharge Summary
Source: patient, records and spouse
Update Note
Update Note:
3 PM patient feeling better labs are noted chest x-ray noted
Suspect this combination of COPD and alcohol withdrawal will hold on steroids at this time does have a history of mental illness,
ED Attending Note
-
Portions of this chart may have been created with voice recognition software.� Occasional wrong word or��sound alike� substitutions may have occurred due to the inherent limitations of voice recognition software.
Discharge Plan
Departure
Patient Disposition: Admit
Date of Disposition: 10/06/24
Time of Disposition: 15:04
Admit to: Telemetry
Presentation/result/management discussed w/ accepting MD/DO: Hospitalist
Patient with high blood pressure during this ER visit?: Yes
Condition: Fair
Covid-19: Not Applicable
Discharge Problem:
Acute bronchitis, SOB (shortness of breath), Alcohol withdrawal syndrome
Prescriptions:
No Action
fluoxetine 40 mg capsule
40 mg PO DAILY
dextroamphetamine-amphetamine 25 mg capsule,extended release 24hr
25 mg PO DAILY
Rx Instructions:
05/07/24: filled #30 capsules/30 days on 04/28/24 at [facility] #[id number]
bupropion HCl 300 mg tablet extended release 24 hr
300 mg PO DAILY
cholecalciferol (vitamin D3) [Vitamin D3] 25 mcg (1,000 unit) Capsule
25 mcg PO DAILY
thiamine HCl (vitamin B1) 100 mg Tablet
100 mg PO BID Qty: 60 0RF
folic acid 1 mg Tablet
1 mg PO DAILY Qty: 30 0RF
Combivent Respimat 20-100 mcg/actuation mist
1 puff inhalation Q6H PRN (Reason: shortness of breath or wheezing) Qty: 4 0RF
hydroxyzine pamoate 25 mg capsule
25 mg PO DAILY Qty: 10 0RF
Interventions
Interventions:
*Risk Screen - Suicide Last Done: 10/06/24 13:10
*General Assessment Last Done: 10/06/24 13:30
*Neglect/Abuse Screening Last Done: 10/06/24 13:10
*ED- Fall Risk Assessment Last Done: 10/06/24 13:30
ED- Cardiac Assessment Last Done: 10/06/24 13:55
ED- Pulmonary Assessment Last Done: 10/06/24 13:55
Discharge Date and Time
Print Language: ARMENIAN
[2024-10-06] MEDS: ZOFRAN 4 MG IV (14:39)
[2024-10-06] MEDS: MULTIVITAMIN 1011 ML IV (14:39)
[2024-10-06] MEDS: MULTIVITAMIN 1011 MG IV (14:39)
[2024-10-06] MEDS: DUONEB 3 ML INH (14:39)
--- NOTE | 2024-10-06 15:32 | HPS.HSE ---
Family Physician
-
Family Physician: Sue Espinal
Chief Complaint
-
SOB
Chest pain
shakiness
History of Present Illness
59-year-old female smoker half a pack a day drinker 2 large glasses of wine a day,bipolar disorder presents with shakiness shortness of breath cough has not smoked or drank alcohol in 3 days/ she has sob and chest tightness for past few days now.
but noted shakiness since last night.sob worse withe exertion. chest tightness with deep breath. denied fever, chills, ARDON, dizzy or syncope. denied abdominal pain, nausea and vomiting. she has chronic diarrhea. denied dysuria or hematuria.
Patient received multivitamin with thiamine, Ativan, nebs, Zofran in ER. Admitted for further manage
Medical History
Past Medical History
Past Medical History: Reports Other
Additional Past Medical History:
HTN, Hypercholesterolemia, NIDDM and Psychiatric (Anxiety, bipolar, alcohol dependence
Past Surgical History: Reports Other
Additional Past Surgical History:
Tubularization, bilateral breast lumpectomy
Social History
Tobacco: Smoker (Half a pack day)
Alcohol: Daily (2 large glass of wine)
Drug: None
Personal: Partner
Living: With Family
Family History
Family History: Not pertinent
Allergies / Home Medications
Allergies reflects when Allergies were last updated in [employer].
Home Medications with original date entered in [employer]
Allergy/Medication List:
Allergies
Allergy/AdvReac Type Severity Reaction Status Date / Time
Penicillins Allergy Unknown Rash Verified 10/06/24 13:12
Home Medications
bupropion HCl 300 mg 24 hr tablet, extended release 300 mg PO DAILY depression/anxiety 05/07/24
fluoxetine 40 mg capsule 40 mg PO DAILY depression/anxiety 05/07/24
ipratropium 20 mcg-albuterol 100 mcg/actuation mist for inhalation (Combivent Respimat) 1 puff inhalation R Q6HPRN PRN shortness of breath or wheezing 10/06/24
Review of Systems
-
Constitutional: Reports No Symptoms
EENT: Reports No Symptoms
Respiratory: Reports Cough and Trouble Breathing
Cardiac: Reports No Symptoms
Abdomen/GI: Reports No Symptoms
: Reports No Symptoms
Musculoskeletal: Reports No Symptoms
Skin: Reports No Symptoms
Neurological: Reports No Symptoms
Endocrine: Reports No Symptoms
Hematologic/Lymphatic: Reports No Symptoms
Psych: Reports No Symptoms
Physical Exam
Vital Signs
Vital Signs
Temp Pulse Resp Pulse Ox
98.0 F 136 16 96
10/06/24 13:10 10/06/24 13:10 10/06/24 13:10 10/06/24 13:10
Physical Exam
General: Well Developed, Well Nourished and No Apparent Distress
HEENT: NormoCephalic, Moist mucous membranes and Atraumatic
Respiratory: Clear
Cardiac: S1/S2 and Regular Rhythm; No Murmur or Rub
GI: Soft, Non Tender, Non Distended and Normal Bowel Sounds; No Organomegaly
Rectal: Deferred by Provider
Musculoskeletal: No Clubbing, No Cyanosis and No Edema
Skin: No Rash
Neuro: AO x 3 and Nonfocal/grossly intact
Psych: Calm
Laboratory Results
-
10/06/24 13:40
10/06/24 13:40
Laboratory Results
Total Bilirubin 1.2 mg/dl (0.2-1.3) 10/06/24 13:40
AST 462 U/L (14-36) H 10/06/24 13:40
ALT 135 U/L (0-35) H 10/06/24 13:40
Alkaline Phosphatase 145 U/L (38-126) H 10/06/24 13:40
Lipase 103 U/L (23-300) 10/06/24 13:40
Data Reviewed
-
Diagnostic Radiology: Report Reviewed by me
Lab Data: Labs Reviewed by me
Impression/Plan
-
# COPD with possible exacerbation/URI
- Chest x-ray negative
- Nebs continued
- Oxygenating very well on room air
- Obtain COVID and flu
# Alcohol withdrawal
# Transaminitis
- AST 462, ALT 135, ALK 145
- Monitor MSAS
- Initiated on phenobarb
# Bipolar/depression, anxiety
-Bupropion, fluoxetine continued
# DVT prophylaxis
- Lovenox subcu
# CODE STATUS
- Full code
[2024-10-06] MEDS: PHENOBARBITAL 104 MG IV (16:11)
--- NOTE | 2024-10-06 16:11 | W.PN.UPDATE ---
Update Note
Progress Note Update
This is an addendum to H&P written by Lisa España on 10/06/2024.� Patient seen and examined independently with SUBSTANCE ABUSE SERVICES DIRECTOR.
59-year-old female past medical history of alcohol dependence, bipolar disorder, smoking history, likely COPD, presenting with shakiness, shortness of breath and cough and sore throat.� Do not drink alcohol in 3 days.
Vitals show heart rate of 136.� EKG shows sinus tachycardia.� Labs show transaminitis.� Alcohol level negative.
ER documented wheezing on examination initially however this is improved currently.
Chest x-ray shows no acute process.
Patient with alcohol withdrawal as well as possible URI/COPD.� IV fluids, thiamine and folate, alcohol withdrawal protocol, phenobarbital protocol.� DuoNebs every 6 hours.� Holding off on steroids at this time given clear lungs and especially given
history of bipolar disorder.� Check COVID and influenza due to sore throat.
[2024-10-06 16:26] LABS: COVID-19 Antigen Negative (Negative)
--- NOTE | 2024-10-06 18:39 | PTCARENOTE ---
Pt admitted from ED- scooted over to bed. Pt states unable to walk very well. Per ED RN, patient failed bedside swallow test. Pt stated problems swallowing since stroke. Pt ST on monitor. HR 110. Pt with visible shaking. Physical assessment done.
MSAS done with patient scoring 6. Meds not verified by pharmacy. Bed alarm turned on. Pt will be NPO. Pt instructed to not to get OOB unassisted. Pt will need to use bedpan until PT eval done.
--- NOTE | 2024-10-06 19:18 | PTCARENOTE ---
Pt admitted from ED- scooted over to bed. Pt states unable to walk very well. Per ED RN, patient failed bedside swallow test. Pt stated problems swallowing since stroke. Pt ST on monitor. HR 110. Pt with visible shaking. Physical assessment done.
MSAS done with patient scoring 6. Meds not verified by pharmacy. Bed alarm turned on. Pt will be NPO. Pt instructed to not get OOB unassisted. Pt will need to use bedpan until PT eval done.
[2024-10-06] MEDS: DUONEB INH (19:34)
[2024-10-06] MEDS: ATIVAN 1 MG PO (19:50)
[2024-10-06] MEDS: LOVENOX 40 MG SC (20:04)
[2024-10-06] MEDS: THIAMINE INJECTION 200 MG IV (20:05)
[2024-10-06] MEDS: NSS 1000 IV (20:10)
[2024-10-06 20:14] LABS: Urine Albumin 1+ (Neg - Trace); Urine Bilirubin Negative (Negative); Urine Character Clear (Clear); Urine Color Yellow; Urine Glucose Negative (Negative); Urine Ketone Negative (Negative); Urine Leukocyte 3+ (Negative); Urine Nitrite Negative (Negative); Urine Occult Blood 1+ (Negative); Urine Urobilinogen Negative (Neg - 1+)
[2024-10-06 20:23] LABS: Urine Mucus Many
[2024-10-06 20:23] LABS: INR 0.97; PT 13.4 Sec (11.4-14.6)
[2024-10-06 20:24] LABS: APTT 33.5 Sec (23.4-35.0)
[2024-10-06 20:24] LABS: Urine Bacteria Moderate (Negative); Urine Red Blood Cell 0-2 /HPF (0-2)
[2024-10-06 20:30] LABS: GGTP 547 U/L (12-43); Magnesium 1.7 mg/dl (1.6-2.3); Phosphorus 3.1 mg/dl (2.5-4.5)
[2024-10-06 20:31] LABS: Amphetamines Negative (Negative); Barbiturates Positive (Negative); Benzodiazepines Positive (Negative); Buprenorphine Negative (Negative); Cocaine Negative (Negative); Marijuana Negative (Negative); Methadone Negative (Negative); Methamphetamines Negative (Negative); Opiates Negative (Negative); Phencyclidine Negative (Negative); Tricyclic Antidepressants Negative (Negative)
[2024-10-06 20:32] LABS: Alcohol None Detected
[2024-10-06 20:36] LABS: B-Hydroxybutyrate 0.07 mmol/L (0.02-0.27)
[2024-10-06 20:45] LABS: Fentanyl, Urine Negative (Negative)
--- NOTE | 2024-10-06 22:21 | PTCARENOTE ---
Patient MSAS 5-6; medicated per JUL. Bedside RN swallow eval done, pt without signs of aspiration. Able to swallow her po ativan w/o issues or coughing. Pt denies any nausea. labs drawn and sent. pt voided via bedpan; urine sent. pt thankful. pt
reports her sister end of last year; emotional support provided.
sinus tachy 100-130s on tele monitor. RT aware to hold neb tx. pt c/o sore throat. tongue with white patches; will pass along to day shift. pt denies any chest pain or sob. lungs are clear/dim on RA. oriented to room and use of call stuart. bed alarm
set for safety. call stuart and tray table within reach.
[2024-10-06] MEDS: PHENOBARBITAL 97.5 MG IV (22:51)
[2024-10-07] VITALS (10 sets, daily range): BP systolic 104–149; BP diastolic 65–92
[2024-10-07] MEDS: THIAMINE INJECTION 200 MG IV ×4 (00:59→23:19)
[2024-10-07 05:29] LABS: ALT (SGPT) 109 U/L (0-35); AST (SGOT) 370 U/L (14-36); Albumin 3.2 g/dl (3.5-5.0); Alkaline Phosphatase 119 U/L (38-126); Blood Urea Nitrogen 3 mg/dl (7-17); Calcium 8.3 mg/dl (8.4-10.2); Carbon Dioxide 24 mmol/L (22-30); Chloride 108 mmol/L (98-107); Estimated Creatinine Clearance 89 ml/min; Glucose 108 mg/dl (70-99); Potassium 3.8 mmol/L (3.5-5.1); Sodium 134 mmol/L (135-145); Total Bilirubin 1.8 mg/dl (0.2-1.3); Total Protein 5.7 g/dl (6.3-8.2); eGFR > 60.00
[2024-10-07] MEDS: DUONEB 3 ML INH ×2 (07:28→11:19)
[2024-10-07] MEDS: NSS 1000 IV (07:37)
[2024-10-07] MEDS: PHENOBARBITAL 97.5 MG IV ×3 (07:38→21:41)
[2024-10-07] MEDS: WELLBUTRIN XL (24 hour extended release) 300 MG PO (07:40)
[2024-10-07] MEDS: PROZAC 40 MG PO (07:40)
[2024-10-07] MEDS: ATIVAN 1 MG PO ×3 (07:40→16:11)
[2024-10-07] MEDS: FOLVITE 1 MG PO (07:40)
--- NOTE | 2024-10-07 10:21 | CM ---
Received consult for Substance/ETOH counseling. Placed a call to patient's S.O who stated that patient lives with him in a single, one level home with 4 steps to enter. She has been independent with ADLs, personal care, dressing and bathing but has
been having a very difficult time as her sister late last year and they were very close. 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 Patient does have a cane and a walker but primarily ambulates independently. She had VN
in the distant past. She has not been to a SNF.
Patient has a prescription plan and uses, [facility] in [place] for all of her medication.
Her PCP is, Sue Espinal.
Patient's S.O stated that he will speak with patient however he was firm that he wanted a referral made to [facility] as he is concerned about patient's etoh use.
Placed a call to [facility] and spoke with Lukas who stated that he would be in to see patient.
Plan: Case management will continue to follow and assist with discharge planning. [facility] will see patient today.
[2024-10-07] MEDS: SPIRIVA RESPIMAT 2.5 MCG INH (13:07)
--- NOTE | 2024-10-07 14:01 | W.PN.HOSP.TC ---
Today's Communication/Plan
-
spiriva
duonebs prn
etoh withdrawal protocol
le dopplers
add on pro bnp
Assessment / Plan
Assessment / Plan
Physical Exam
General: Well Developed, Well Nourished and No Apparent Distress
HEENT: NormoCephalic, Moist mucous membranes and Atraumatic
Respiratory: Clear
Cardiac: S1/S2 and Regular Rhythm; No Murmur or Rub
GI: Soft, Non Tender, Non Distended and Normal Bowel Sounds; No Organomegaly
Rectal: Deferred by Provider
Musculoskeletal: No Clubbing, No Cyanosis and No Edema
Skin: No Rash
Neuro: AO x 3 and Nonfocal/grossly intact
Psych: Calm
#SOB
# COPD no exacerbation
-no wheezing
with possible exacerbation/URI along with uncontrolled copd and anxiety as patient still smoking with only as needed duonebs
-Start spiriva
- nebs prn
- LE dopplers
-Pulm outpt f/u
-SARS-CoV-2 and Flu neg
#Hyponatremia
-mild
monitor
#Asymptomatic bacteruria
-no symptoms
# Alcohol withdrawal
# Transaminitis
- AST 462, ALT 135, ALK 145
- Monitor MSAS
- Initiated on phenobarb
-Ativan prn
# Bipolar/depression, anxiety
-Bupropion, fluoxetine continued
# DVT prophylaxis
- Lovenox subcu
# CODE STATUS
- Full code
Anticipated Discharge: 24 - 48 hours
Subjective/Interval History
-
Date of Service: October 07, 2024
still with sob, some tremors; no wheezing
Objective Data
-
Labs:
Laboratory Results
10/07/24
04:56
Sodium 134 L
Potassium 3.8
Chloride 108 H
Carbon Dioxide 24
BUN 3 L
Creatinine 0.6
Glucose 108 H
Calcium 8.3 L
Total Bilirubin 1.8 H
AST 370 H
ALT 109 H
Alkaline Phosphatase 119
Vital Signs:
Vital Signs
Temp Pulse Resp BP Pulse Ox
98.3 F 101 20 121/75 93
10/07/24 11:05 10/07/24 11:20 10/07/24 11:20 10/07/24 08:00 10/07/24 11:20
Review of Systems
-
History Source: Patient
All other systems: Not reviewed unless documented
Physical Exam
-
General: Well Developed and Well Nourished
HEENT: Normocephalic and Atraumatic
Respiratory: Clear to Auscultation
Cardiac: Regular Rhythm and S1/S2
GI: Soft, Nontender, Nondistended and Normal Bowel Sounds
Neuro: Awake, Alert, Oriented and AO x 3
Psych: Calm
[2024-10-07 15:35] LABS: NT-proBNP 285 pg/ml
--- NOTE | 2024-10-07 15:36 | PTCARENOTE ---
Rec'd pt this AM. MSAS consistently 5 throughout shift. Treated with PO Ativan with good effect. AAO x3 but can be forgetful, impulsive. bed alarm in place. downgraded to tele. cooperative, pleasant, vital signs stable.
[2024-10-07] MEDS: LOVENOX 40 MG SC (17:19)
[2024-10-08 03:36] VITALS: BP 123/93
[2024-10-08 07:00] VITALS: BP 109/74
[2024-10-08 07:38] LABS: Hematocrit 35.2 % (37.0-47.0); Hemoglobin 12.4 g/dL (12.0-16.0); Mean Corp Hgb Conc. 35.2 g/dL (33.0-37.0); Mean Corpuscular Hgb 33.4 pg (27.0-31.0); Mean Corpuscular Volume 94.9 fL (81.0-99.0); Mean Platelet Volume 9.8 fL (7.4-10.4); Platelet Count 97 10^3/uL (130-400); Red Blood Cell Count 3.71 10^6/uL (4.20-5.40); Red Cell Dist. Width 12.9 % (11.5-14.5); White Blood Cell Count 3.8 10^3/uL (4.8-10.8)
[2024-10-08] MEDS: SPIRIVA RESPIMAT 2.5 MCG 2 PUFF INH (07:49)
[2024-10-08] MEDS: PROZAC 40 MG PO (07:50)
[2024-10-08] MEDS: PHENOBARBITAL 97.5 MG IV (07:50)
[2024-10-08] MEDS: FOLVITE 1 MG PO (07:50)
[2024-10-08] MEDS: WELLBUTRIN XL (24 hour extended release) 300 MG PO (07:50)
[2024-10-08] MEDS: THIAMINE INJECTION 200 MG IV (07:51)
[2024-10-08 08:39] LABS: ALT (SGPT) 135 U/L (0-35); AST (SGOT) 353 U/L (14-36); Albumin 3.2 g/dl (3.5-5.0); Alkaline Phosphatase 153 U/L (38-126); Blood Urea Nitrogen 5 mg/dl (7-17); Calcium 8.7 mg/dl (8.4-10.2); Carbon Dioxide 24 mmol/L (22-30); Chloride 108 mmol/L (98-107); Estimated Creatinine Clearance 89 ml/min; Glucose 102 mg/dl (70-99); Potassium 3.5 mmol/L (3.5-5.1); Sodium 134 mmol/L (135-145); Total Bilirubin 1.5 mg/dl (0.2-1.3); Total Protein 5.6 g/dl (6.3-8.2); eGFR > 60.00
--- NOTE | 2024-10-08 09:58 | CM ---
Addendum entered by Delfina Bermudez 10/08/24 10:02:
correction to below - patient significant other not
Original Note:
chart reviewed
reached out to Lukas from [facility]. He met with the patient and she declines inpatient. Lukas gave patient resources for outpatient rehab. Patient gave him permission to speak to her . Lukas will reach out to him.
PLAN: home when medically stable, outpatient rehab resources given to patient
[2024-10-08 11:00] VITALS: BP 110/73
--- NOTE | 2024-10-08 11:25 | W.PN.HOSP.TC ---
Addendum entered and electronically signed by Donaldo Youngblood MD 10/09/24 14:25:
[id number]
Original Note:
Today's Communication/Plan
-
Spiriva
Albuterol as needed
Follow-up BMP, LFTs outpatient
Follow-up PFTs outpatient
Follow-up PCP outpatient
Assessment / Plan
Assessment / Plan
Physical Exam
General: Well Developed, Well Nourished and No Apparent Distress
HEENT: NormoCephalic, Moist mucous membranes and Atraumatic
Respiratory: Clear
Cardiac: S1/S2 and Regular Rhythm; No Murmur or Rub
GI: Soft, Non Tender, Non Distended and Normal Bowel Sounds; No Organomegaly
Rectal: Deferred by Provider
Musculoskeletal: No Clubbing, No Cyanosis and No Edema
Skin: No Rash
Neuro: AO x 3 and Nonfocal/grossly intact
Psych: Calm
#SOB
# COPD no exacerbation
-no wheezing
with possible exacerbation/URI along with uncontrolled copd and anxiety as patient still smoking with only as needed duonebs
-Start spiriva
� Discharged on Spiriva, albuterol as needed
� PFTs outpatient
- LE dopplers negative
-SARS-CoV-2 and Flu neg
#Hyponatremia
-mild
monitor
�Follow-up BMP outpatient
#Asymptomatic bacteruria
-no symptoms
# Alcohol withdrawal
# Transaminitis
- AST 462, ALT 135, ALK 145�trending down
- Monitor MSAS
- Initiated on phenobarb
-Ativan prn
� Alcohol cessation
� Follow-up outpatient
� Given information will be [facility]
# Bipolar/depression, anxiety
-Bupropion, fluoxetine continued
# DVT prophylaxis
- Lovenox subcu
# CODE STATUS
- Full code
More than 30 minutes spent in discharge including
Final examination of the patient
Summarizing hospital stay
Instructions for continuing care to all relevant caregivers
Preparation of discharge records, prescriptions, and referral forms
Total time spent (in minutes): 36
Anticipated Discharge: Today
Subjective/Interval History
-
Date of Service: October 08, 2024
No acute events, shortness of breath improved
Objective Data
-
Labs:
Laboratory Results
10/08/24
06:58
WBC 3.8 L
Hgb 12.4
Hct 35.2 L
Plt Count 97 L
Sodium 134 L
Potassium 3.5
Chloride 108 H
Carbon Dioxide 24
BUN 5 L
Creatinine 0.5 L
Glucose 102 H
Calcium 8.7
Total Bilirubin 1.5 H
AST 353 H
ALT 135 H
Alkaline Phosphatase 153 H
Vital Signs:
Vital Signs
Temp Pulse Resp BP Pulse Ox
97.9 F 80 16 109/74 97
10/08/24 07:00 10/08/24 07:49 10/08/24 07:49 10/08/24 07:00 10/08/24 07:49
I&O
10/07/24 10/08/24 10/09/24
06:59 06:59 06:59
Intake Total 480 / 480
Balance 480 / 480
Review of Systems
-
History Source: Patient
All other systems: Not reviewed unless documented
Data Reviewed
-
Diagnostic Radiology: Report Reviewed by me
Ultrasound: Report Reviewed by me
Labs: Labs Reviewed by me
--- NOTE | 2024-10-08 11:30 | W.DS.TRANS ---
DC Summary - [employer]
-
Discharge Instructions:
Discharge Diagnosis/Procedures SOB
Anxiety
# Alcohol withdrawal
# Transaminitis
Diet Low Cholesterol,Low Fat
Additional Diets Alcohol and smoking cessation
Blood Work cbc, bmp and LFTs in 3-5 days - monitoring WBC,
LFTs, and Sodium
Instructions:
Stand-Alone Forms:
Changes to Home Medications: Yes
Discharge Medications:
DC Medications w/original date entered in [employer]
bupropion HCl 300 mg 24 hr tablet, extended release 300 mg PO DAILY depression/anxiety 05/07/24
fluoxetine 40 mg capsule 40 mg PO DAILY depression/anxiety 05/07/24
albuterol sulfate 90 mcg/actuation aerosol inhaler (Ventolin HFA) 2 puff inhalation Q6H PRN shortness of breath or wheezing #8.5 grams 10/08/24
folic acid 1 mg tablet 1 mg PO DAILY #30 tabs 10/08/24
thiamine mononitrate (vit B1) 100 mg tablet 100 mg PO BID #30 tabs 10/08/24
tiotropium bromide 2.5 mcg/actuation mist for inhalation (Spiriva Respimat) 2 puff inhalation R DAILY #4 grams 10/08/24
Home Medication Changes
albuterol sulfate 90 mcg/actuation aerosol inhaler (Ventolin HFA) 2 puff inhalation Q6H PRN shortness of breath or wheezing #8.5 grams 10/08/24
folic acid 1 mg tablet 1 mg PO DAILY #30 tabs 10/08/24
thiamine mononitrate (vit B1) 100 mg tablet 100 mg PO BID #30 tabs 10/08/24
tiotropium bromide 2.5 mcg/actuation mist for inhalation (Spiriva Respimat) 2 puff inhalation R DAILY #4 grams 10/08/24
Pending Results: No
== END 2024-10-08 12:51 | disposition home or self-care (01) | DRG 191 ==
LOC: 4 WEST ACU 16:14
PROVIDERS: Registered Nurse; ADMITTING PHYSICIAN Hospitalist; ATTENDING PHYSICIAN Internal Medicine; EMERGENCY PHYSICIAN Emergency Medicine; FAMILY PHYSICIAN Family Medicine
DX: J44.1 Chronic obstructive pulmonary disease with (acute) exacerbation (principal); E87.1 Hypo-osmolality and hyponatremia; F10.239 Alcohol dependence with withdrawal, unspecified; J06.9 Acute upper respiratory infection, unspecified; F17.210 Nicotine dependence, cigarettes, uncomplicated; F41.9 Anxiety disorder, unspecified; F31.9 Bipolar disorder, unspecified; Z11.52 Encounter for screening for COVID-19
CPT/HCPCS: 71046; 80053; 80306; 80307; 81003; 81015; 82010; 82077; 82977; 83690; 83735; 83880; 84100; 85025; 85027; 85610; 85730; 87502; 87811; 93005; 93970; 94640; 96374; 96375; 99285; 99406

== ENCOUNTER 2024-10-19 20:35 | Inpatient (IN) | payer MEDICARE, OTHER, SELFPAY ==
[2024-10-19] VITALS (9 sets, daily range): BP systolic 117–157; BP diastolic 76–95; BMI 26.0
[2024-10-19 13:22] LABS: Glucose - Point of Care 193 mg/dl (70-99)
[2024-10-19 13:55] LABS: % Basophils 0.7 % (0-2); % Eosinophils 0.1 % (0-6); % Immature Granulocytes 0.5 % (0-0.5); % Monocytes 5.3 % (1.7-9.3); % Neutrophils 86.4 % (42.2-75.2); Absolute Basophils 0.1 10^3/uL (0-0.2); Absolute Immature Granulocytes 0.1 10^3/uL (0-0.05); Absolute Lymphocytes 0.8 10^3/uL (1.2-3.4); Absolute Monocytes 0.6 10^3/uL (0.1-0.6); Absolute Neutrophils 10.2 10^3/uL (1.4-6.5); Hematocrit 43.5 % (37.0-47.0); Mean Corp Hgb Conc. 36.8 g/dL (33.0-37.0); Mean Corpuscular Hgb 34.3 pg (27.0-31.0); Mean Corpuscular Volume 93.3 fL (81.0-99.0); Mean Platelet Volume 8.8 fL (7.4-10.4); Nucleated Red Blood Cells % 0 %; Platelet Count 271 10^3/uL (130-400); Red Blood Cell Count 4.66 10^6/uL (4.20-5.40); Red Cell Dist. Width 13.1 % (11.5-14.5); White Blood Cell Count 11.8 10^3/uL (4.8-10.8)
--- NOTE | 2024-10-19 14:01 | ED.GENMED ---
History of Present Illness
General
Chief Complaint: Abdominal Symptoms
Source: patient
Exam Limitations: none
Time Seen by Provider: 10/19/24 13:43
Nursing documentation reviewed up to this point in time: agreed with
History of Present Illness
History of Present Illness:
Patient is a 59-year-old female presenting with 1 week of dry heaves, anorexia, diarrhea, and progressively worsening weakness now with inability to ambulate. Patient reports that about 1 week ago she started with anorexia and dry heaves. She
reports she has been 'shaking 'over the past 1 week. She also states that she feels extremely weak and has been unable to walk. She does report diarrhea. She denies any fever, abdominal pain, dysuria. Patient denies any chest pain or shortness
of breath.
She states that she used to drink 2 glasses of wine per day although stopped abruptly last week. Her last drink was 1 week ago. She also states that she stopped smoking cigarettes 1 week ago.
She states that she waited to come to the emergency department because she was 'nervous '.
Past History
Past History
ED Past Medical History: Psychiatric (Anxiety, Bipolar) and Other (Hyponatremia); Negative Asthma, HTN, Hypercholesterolemia or NIDDM
ED Past Surgical History: Gynecological (Tubal) and Other (Breast surgery, Monty lumpectomy)
Social History
Tobacco: Smoker
Alcohol: Daily (Wine 6 glasses)
Drug: None
Personal:
Living: alone
Employment: Employed
Review of Systems
Review of Systems
Allergies reviewed?: Yes
All Other Systems: ROS reviewed and negative except as documented in HPI and ROS
Phy Exam
Physical Exam
Physical Exam:
Vitals: Tachycardic, hypertensive.
General: Patient is tremulous and anxious appearing. Looks older than stated age.
Skin: Warm and dry, no rashes or lesions
Head: Normocephalic, atraumatic
Eyes: Sclera nonicteric. EOMs intact. No nystagmus.
Throat: Dry mucous membranes. Protecting airway
Neck: Normal ROM
Cardiac: Tachycardic, normal rhythm, no murmurs.
Pulm: Normal respiratory effort, no wheezes, rales, rhonchi heard on exam
.
Abdomen: Abdomen soft. No focal tenderness
Extremities: Tremulous. No evidence of cyanosis or edema
Neuro: AAOx3. CN II-XII intact. No focal neurologic deficits.
Psychiatric: Normal affect.
Course
Orders/Labs/Results
Orders:
Orders
10/19/24 13:14
Electrocardiogram (*1) Urgent
Reason for Study: Tachycardia
10/19/24 13:15
EKG- Treatment ONCE
10/19/24 13:28
Complete Blood Count/With Diff Urgent
Comprehensive Metabolic Panel Urgent
Lipase Urgent
10/19/24 13:51
STOOL [C difficile Antigen & Toxins] Urgent
GABRIELLA Source: Feces/Stool
Specimen Description:
Lorazepam [Ativan] 1 mg IV NOW STA
Ondansetron Injectable [Zofran] 4 mg IV NOW STA
10/19/24 13:57
Stool Culture Urgent
GABRIELLA Source: Feces/Stool
Specimen Description:
10/19/24 13:59
CT Abd/pelvis W Iv Cont Urgent
Comment:
Reason For Exam: Abdominal pain, vomiting
10/19/24 14:17
Lactic Acid Q4H
Comment: CANCEL 2nd LACTIC ACID IF 1st LACTIC ACID IS LESS THAN 2
Blood Culture Q30M
GABRIELLA Source: Blood/Venous
Specimen Description:
Blood Culture Q30M
GABRIELLA Source: Blood/Venous
Specimen Description:
10/19/24 14:19
0.9% Sodium Chloride 1000 ml [Nss] 1,000 ml IV BOLUS
10/19/24 14:48
0.9% Sodium Chloride 1000 ml [Nss] 1,000 ml IV BOLUS
10/19/24 16:41
Fentanyl, Urine Urgent
Urinalysis Reflex To Culture Urgent
Date Specimen was Collected: 10/19/24
Time Specimen was Collected: 16:40
Urine Drug Abuse Screen Urgent
Date Specimen was Collected: 10/19/24
Time Specimen was Collected: 16:40
Urine Microscopic Reflex Cult Urgent
Urine Culture Urgent
GABRIELLA Source: U
Specimen Description:
Date Specimen was Collected: 10/19/24
Time Specimen was Collected: 16:40
10/19/24 17:38
Alcohol Urgent
Comprehensive Metabolic Panel Urgent
Lactic Acid Q4H
Comment: CANCEL 2nd LACTIC ACID IF 1st LACTIC ACID IS LESS THAN 2
Magnesium Urgent
Comment: ADD ON
10/19/24 17:52
Lorazepam [Ativan] 1 mg IV NOW STA
10/19/24 18:04
CR Chest Portable - 1 View Urgent
Comment:
Reason For Exam: SOB
Reason Study Needs to be Portable: Patient Unstable
10/19/24 20:19
Admit/Transfer Patient As Directed
Co-Sign Provider:
Level of Care: Inpatient admission
Assign to:: Medical/Surgical
Physician / Group: Jose Gross
Diagnosis: alcohol withdraw, transaminitis
Reason for Hospitalization: alcohol withdraw, transaminitis
Expected length of stay greater than two midnights?: Yes
ELOS- Estimated Length of Stay in days: 3
I certify the patient meets the requirements for IP care: Yes
PRN Pain Medication Management As Directed
May give lesser potent ordered pain med per pt: Yes
preference::
Protocol:: Medication orders for pain may be administered in a
manner that supports deferring to patient preference
when the pt is:
- Requesting an ordered lesser potent pain medication.
Least to most potent pain medications are defined
as: acetaminophen < NSAID < tramadol < opioids
(morphine, oxycodone, hydromorphone).
- Requesting a lesser dose of the same medication IF
ORDERED.
- Requesting a less intrusive route of administration
if both routes are prescribed by the provider (PO <
IV).
10/19/24 20:20
Code Status As Directed
Resuscitation Status: Full Code
10/19/24 20:50
0.9% Sodium Chloride 1000 ml [Nss] 1,000 ml IV 100 mls/hr
0.9% Sodium Chloride [Nss (Preservative Free)] See Protocol IV PRN PRN
Albuterol [ProAIR HFA INHALER] 2 puff INH R Q4HPRN PRN
FOLic ACID [Folvite] 1 mg 0.9% Sodium Chloride 50 ml [Nss] 50 ml IV DAILYPRN
Ipratropium/Albuterol Sulfate [Duoneb] 3 ml INH R Q4HPRN PRN
Lorazepam [Ativan] 1 mg IV Q1HPRN PRN
Lorazepam [Ativan] 1 mg PO Q2HPRN PRN
Lorazepam [Ativan] 2 mg IV Q1HPRN PRN
10/19/24 20:50
Case Management Consult Once
Case Management Consult: Other
Comment: Substance abuse counseling
DIETARY IP CONSULT Routine
Reason for Consult: Nutrition support, possible refeeding guidelines
Activity As Directed
Activity Level: As Tolerated
Intake/ Output As Directed
Frequency: Per unit guidelines
MSAS SCORE As Directed
MSAS Score 0-4: Repeat MSAS every 2 hours until 0-4 for three consecutive assessments, then every 4 hours x 48
hours.
MSAS Score 5-7: For MILD withdrawl symptoms. Repeat MSAS and RASS every 2 hours
MSAS Score 8-11: For MODERATE withdrawal symptoms. Repeat MSAS and RASS every 1 hour. Consider ICU or IMU
level of care.
MSAS Score > 11: For SEVERE withdrawal symptoms. Repeat MSAS and RASS every 1 hour. Notify provider, consider
ICU level of care.
MSAS Additional Instructions: If no improvement or no decrease in score from severe to moderate within 12
hours, consult psychiatry
MSAS Notify Provider: Notify provider if patient requires more than 10 mg of Lorazepam in eight hour period.
Vital Signs As Directed
Frequency: Per unit guidelines
Weight As Directed
Frequency: Once
Comment: on admission
Smoking Cessation Counseling [RESP] Routine
Pt Eval And Treat Routine
Activity Level: As Tolerated
DX Deep Vein Thrombosis Video Routine
10/19/24 21:06
B-Hydroxybutyrate Urgent
GGTP Urgent
PTT Urgent
Phosphorus Urgent
Prothrombin Time Urgent
10/19/24 22:00
Phenobarbital Sodium [Phenobarbital] 97.5 mg IV TID
10/20/24 06:00
Basic Metabolic Panel IN AM
Complete Blood Count/No Diff IN AM
10/20/24 08:00
Bupropion(24Hr)Extended Releas [WELLBUTRIN XL (24 hour extended release)] 300 mg PO DAILY
FOLic ACID [Folvite] 1 mg PO DAILY
Fluoxetine HCl [Prozac] 40 mg PO DAILY
Thiamine Injection 200 mg IV Q12
10/20/24 18:00
Enoxaparin Sodium [Lovenox] 40 mg SC QPM
10/21/24 22:00
Phenobarbital [Luminal] 64.8 mg PO TID
10/23/24 08:00
Thiamine HCl [Vitamin B1] 100 mg PO BID
10/23/24 22:00
Phenobarbital [Luminal] 32.4 mg PO TID
Abnormal Lab Results
10/19/24 10/19/24 10/19/24
13:21 13:28 14:17
WBC 11.8 H 10^3/uL
(4.8-10.8)
MCH 34.3 H pg
(27.0-31.0)
Abs Immat Gran (auto) 0.1 H 10^3/uL
(0-0.05)
Absolute Neuts (auto) 10.2 H 10^3/uL
(1.4-6.5)
Absolute Lymphs (auto) 0.8 L 10^3/uL
(1.2-3.4)
Neutrophils % 86.4 H %
(42.2-75.2)
Lymphocytes % 7.0 L %
(20.5-51.1)
Carbon Dioxide 17 L mmol/L
(22-30)
BUN < 2 L mg/dl
(7-17)
Glucose 164 H mg/dl
(70-99)
Lactic Acid 4.1 H* mmol/L
(0.7-2.0)
Calcium
AST 190 H U/L
(14-36)
ALT 72 H U/L
(0-35)
Alkaline Phosphatase 183 H U/L
(38-126)
Total Protein
Albumin
Leukocyte Esterase Rfl
Urine WBC (Reflex)
Urine Bacteria (Reflex)
Urine Albumin (Reflex)
Ur Barbiturates Screen
U Benzodiazepines Scrn
POC Glucose 193 H mg/dl
(70-99)
10/19/24 10/19/24
16:41 17:38
WBC
MCH
Abs Immat Gran (auto)
Absolute Neuts (auto)
Absolute Lymphs (auto)
Neutrophils %
Lymphocytes %
Carbon Dioxide
BUN < 2 L mg/dl
(7-17)
Glucose 117 H mg/dl
(70-99)
Lactic Acid 2.8 H mmol/L
(0.7-2.0)
Calcium 7.8 L mg/dl
(8.4-10.2)
AST 138 H U/L
(14-36)
ALT 52 H U/L
(0-35)
Alkaline Phosphatase 127 H U/L
(38-126)
Total Protein 5.5 L D g/dl
(6.3-8.2)
Albumin 3.2 L g/dl
(3.5-5.0)
Leukocyte Esterase Rfl 2+ A
(Negative)
Urine WBC (Reflex) 50-60 A /HPF
(0-5)
Urine Bacteria (Reflex) Few A
(Negative)
Urine Albumin (Reflex) 1+ A
(Neg - Trace)
Ur Barbiturates Screen Positive H
(Negative)
U Benzodiazepines Scrn Positive H
(Negative)
POC Glucose
10/19/24 13:28
10/19/24 17:38
Vital Signs
Initial and Last Documented VS:
Initial Vital Signs
Temp Pulse Resp BP Pulse Ox
97.7 F 146 20 150/95 96
10/19/24 13:11 10/19/24 13:11 10/19/24 13:11 10/19/24 13:11 10/19/24 13:11
Last Documented Vital Signs
Temp Pulse Resp BP Pulse Ox
98.7 F 116 18 141/93 95
10/19/24 23:39 10/19/24 23:39 10/19/24 23:39 10/19/24 23:39 10/19/24 23:39
MDM/Problems Addressed
Differential Diagnosis Includes:
Not limited to: Gastritis, acute dehydration, UTI, colitis, alcohol withdrawal, sepsis, etc
MDM/Problems Addressed:
59 y.o F w/ 1 week of anorexia, dry heaves, tremors, and progressively worsening weakness now with inability to ambulate. Does note some diarrhea.No fevers, vomiting, dysuria. Patient did have recent hospitalization for bronchitis complicated by
alcohol withdrawal. Patient reports abrupt cessation of alcohol drinking and smoking 1 week ago prior to onset of symptoms. Patient significantly tachycardic on arrival. Physical exam as above.
Patient appears clinically very dehydrated. Suspect component of alcohol withdrawal contributing to presenting symptoms. However - will rule out underlying infectiously etiology. Will check basic labs, lactic, UA, CT abdomen/pelvis. Will send blood
cultures. Given recent hospitalization and reports of diarrhea - C.Diff would be on differential. Will attempt to obtain stool studies. Will give IVF and IV ativan.
Update: Labs reveal mild leukocytosis and significant lactic acidosis which I suspect to be secondary to alcohol use disorder and GI losses. Transaminitis noted. UA not indicative of UTI. CT scan without acute findings. Alcohol level undetectable.
She has been unable to provide stool sample in ED. Overall impression is likely acute dehydration and lactic acidosis secondary to alcohol use disorder/ withdrawal. Repeat BMP reveals improvement in acidosis and lactic acid decreased to 2.8.
Tachycardia improved following 2L IVF although remains elevated in low 100s. Patient has required multiple doses of IV ativan to control symptoms. At this point- feel patient should be admitted for continued IVF hydration and management of alcohol
withdrawal. Patient accepted to hospitalist service in stable condition. Patient seen w/ attending physician.
Chronic conditions affecting care:
HTN
Acute Exacerbation and/or Progression of Chronic Illness:
Acute alcohol withdrawal, acute dehydration
*Radiology
Radiology exam reviewed: preliminary read by ED provider (CXR reviewed y me - no acute abnormalities) and radiology read reviewed
*Pulse Oximetry
Patient hypoxic: no
*EKG
Interpreted by ED Provider?: Yes
EKG Intrepretation Date: 10/19/24
Interpretation: abnormal
Heart Rate: 141
Rate: tachycardiac
Rhythm: sinus
[place]: normal axis
Interval: normal interval
QRS Pattern: normal QRS
Ischemia: no ischemia
*[facility] Specialist Interpretation
Rate: tachycardiac
Interpretation: abnormal
Heart Rate: 121
Rhythm: sinus
*Critical Care Note
Total Time (30-74mins, 75-104mins- exclusive of procedures): Not Applicable
Data Reviewed
Review of Other/Old Records Reveals: Discharge Summary (Discharge summary 10/08 for bronchitis and alcohol withdrawal)
Patient Management
Discussion with other providers: Hospitalist
Escalation/DeEscalation of care consider admission/obs:
Admit for further management
ED Attending Note
-
Portions of this chart may have been created with voice recognition software.� Occasional wrong word or��sound alike� substitutions may have occurred due to the inherent limitations of voice recognition software.
Discharge Plan
Departure
Patient Disposition: Admit
Date of Disposition: 10/19/24
Time of Disposition: 19:27
Presentation/result/management discussed w/ accepting MD/DO: Hospitalist
Discharge Problem:
Acute dehydration, Alcohol withdrawal, Intractable nausea
Interventions
Interventions:
*Risk Screen - Suicide Last Done: 10/19/24 13:11
*General Assessment Last Done: 10/19/24 13:11
*Neglect/Abuse Screening Last Done: 10/19/24 15:01
*ED- Fall Risk Assessment Last Done: 10/19/24 21:13
*ED COVID-19 Vaccine History Last Done: 10/19/24 15:01
*Nursing Disposition Last Done: 10/19/24 21:13
QX-Rvgmld-Ndtaruchfr Assessment Last Done: 10/19/24 13:59
Discharge Date and Time
Discharge Date/Time: 10/19/24 22:09
[2024-10-19 14:05] LABS: AST (SGOT) 190 U/L (14-36); Albumin 4.4 g/dl (3.5-5.0); Alkaline Phosphatase 183 U/L (38-126); Blood Urea Nitrogen < 2 mg/dl (7-17); Calcium 9.2 mg/dl (8.4-10.2); Carbon Dioxide 17 mmol/L (22-30); Chloride 106 mmol/L (98-107); Glucose 164 mg/dl (70-99); Lipase 116 U/L (23-300); Potassium 4.8 mmol/L (3.5-5.1); Sodium 135 mmol/L (135-145); Total Bilirubin 0.9 mg/dl (0.2-1.3); Total Protein 7.3 g/dl (6.3-8.2); eGFR > 60.00
[2024-10-19] MEDS: ZOFRAN 4 MG IV (14:13)
[2024-10-19] MEDS: ATIVAN 1 MG IV ×2 (14:16→18:12)
[2024-10-19 14:20] LABS: ALT (SGPT) 72 U/L (0-35)
[2024-10-19] MEDS: NSS 1000 IV ×3 (14:20→21:06)
[2024-10-19 14:40] LABS: Lactic Acid 4.1 mmol/L (0.7-2.0)
[2024-10-19 16:50] LABS: Urine Albumin 1+ (Neg - Trace); Urine Bilirubin Negative (Negative); Urine Character Clear (Clear); Urine Color Yellow; Urine Glucose Negative (Negative); Urine Ketone Negative (Negative); Urine Leukocyte 2+ (Negative); Urine Nitrite Negative (Negative); Urine Occult Blood Negative (Negative); Urine Specific Gravity 1.005 (<1.030); Urine Urobilinogen Negative (Neg - 1+)
[2024-10-19 17:18] LABS: Urine Urothelial Cell 0-2 /LPF (FEW)
[2024-10-19 17:19] LABS: Urine Red Blood Cell 0-2 /HPF (0-2)
[2024-10-19 17:20] LABS: Urine Bacteria Few (Negative); Urine White Cell 50-60 /HPF (0-5)
[2024-10-19 17:21] LABS: Urine Hyaline Cast 0-2 /LPF (0-2)
[2024-10-19 17:59] LABS: Lactic Acid 2.8 mmol/L (0.7-2.0)
[2024-10-19 18:07] LABS: ALT (SGPT) 52 U/L (0-35); AST (SGOT) 138 U/L (14-36); Albumin 3.2 g/dl (3.5-5.0); Alkaline Phosphatase 127 U/L (38-126); Blood Urea Nitrogen < 2 mg/dl (7-17); Calcium 7.8 mg/dl (8.4-10.2); Carbon Dioxide 23 mmol/L (22-30); Chloride 107 mmol/L (98-107); Glucose 117 mg/dl (70-99); Potassium 4.6 mmol/L (3.5-5.1); Sodium 136 mmol/L (135-145); Total Bilirubin 0.8 mg/dl (0.2-1.3); Total Protein 5.5 g/dl (6.3-8.2); eGFR > 60.00
[2024-10-19 18:24] LABS: Magnesium 1.8 mg/dl (1.6-2.3)
[2024-10-19 18:29] LABS: Alcohol None Detected
[2024-10-19 18:53] LABS: Amphetamines Negative (Negative); Barbiturates Positive (Negative); Benzodiazepines Positive (Negative); Buprenorphine Negative (Negative); Cocaine Negative (Negative); Marijuana Negative (Negative); Methadone Negative (Negative); Methamphetamines Negative (Negative); Opiates Negative (Negative); Phencyclidine Negative (Negative); Tricyclic Antidepressants Negative (Negative)
[2024-10-19 19:05] LABS: Fentanyl, Urine Negative (Negative)
--- NOTE | 2024-10-19 19:36 | HPS.HSE ---
Addendum entered and electronically signed by Jose Gross DO 10/19/24 21:13:
Patient seen and examined independently. Agree with findings and plan as set forth by SHANTI Vasquez.
Patient is a 59y F with PMH significant for hypertension, DM-II, anxiety and alcohol use disorder who presents to ED complaining of N/V/D and progressive weakness / fatigue. Patient was recently admitted 10/06 - 10/08 secondary to asthma symptoms
and alcohol withdrawal. She states that she felt weak and unsteady at discharge. She went home and had alcohol for about two days (she states 2 glasses of wine daily). She states no alcohol since that time. She has had progressive weakness and
N/V/D since that time.
Ass:
Alcoholic Gastritis
Alcoholic Hepatitis
Alcohol Use Disorder
Alcohol Withdrawal
Bipolar / Anxiety
Benign Hypertension
DM-II
? History of CVA
COPD without Acute Exacerbation
Plan:
Admit for further evaluation and treatment.
Phenobarbital taper, MSAS, PRN BZDs.
Thiamine. folate, MVI replacement.
IVF support.
Follow for clinical improvement.
Continue usual home meds.
Restart inhaled medications.
Begin ASA given stated history of stroke.
PT evaluation for gait safety.
Original Note:
Family Physician
-
Family Physician: Sue Espinal
Chief Complaint
-
generalized weakness
History of Present Illness
Patient is a 59-year-old female with past medical history significant for hypertension, hypercholesterolemia, NIDDM, anxiety, bipolar and alcohol dependence who presented to [facility] ED for evaluation of dry heaves, anorexia, diarrhea and progressively
worsening weakness. Patient reports that she quit drinking 5 days ago as well as quit smoking cigarettes. She states that just prior to that she started with dry heaving, anorexia, diarrhea (reports chronic diarrhea), tremors and increased weakness
feeling like she can not walk. She states that she has had on going shortness of breath and dry cough. Denies any numbness, tingling, dizziness, fever, chills or constipation.
Medical History
Past Medical History
Past Medical History: Reports Other
Additional Past Medical History:
hypertension
hypercholesterolemia
NIDDM
anxiety
bipolar
alcohol dependence
Hx CVA?? (Terry Hidalgo Dec 2023)
Past Surgical History: Reports Other
Additional Past Surgical History:
Tubularization
bilateral breast lumpectomy
Social History
Tobacco: Smoker (Half a pack day, quit 10 days ago, approximately 21.5 pack year history )
Alcohol: Former (2 large glass of wine daily until 5 days ago )
Drug: None
Personal: Partner
Living: With Roomate (with boyfriend )
Employment: Retired
Family History
Family History: Not pertinent and Other (Sister: Pancreatic Ca (); Sister, Father and 2 brothers all with ETOH dependency )
Allergies / Home Medications
Allergies reflects when Allergies were last updated in [facility].
Home Medications with original date entered in [facility]
Allergy/Medication List:
Allergies
Allergy/AdvReac Type Severity Reaction Status Date / Time
apple Allergy Tongue Verified 10/19/24 13:12
Swelling
Penicillins Allergy Rash Verified 10/19/24 13:12
Home Medications
bupropion HCl 300 mg 24 hr tablet, extended release 300 mg PO DAILY depression/anxiety 05/07/24
fluoxetine 40 mg capsule 40 mg PO DAILY depression/anxiety 05/07/24
ipratropium 20 mcg-albuterol 100 mcg/actuation mist for inhalation (Combivent Respimat) 2 puff inhalation R BIDPRN PRN sob 10/19/24
Review of Systems
-
History Source: Patient
Constitutional: Reports Chills
EENT: Reports No Symptoms
Respiratory: Reports Cough and Trouble Breathing (shortness of breath )
Cardiac: Reports No Symptoms
Abdomen/GI: Reports Nausea, Vomiting and Diarrhea
: Reports No Symptoms
Musculoskeletal: Reports No Symptoms
Skin: Reports No Symptoms
Neurological: Reports Weakness and Other (tremors )
Endocrine: Reports No Symptoms
Hematologic/Lymphatic: Reports No Symptoms
Psych: Reports No Symptoms
Physical Exam
Vital Signs
Vital Signs
Temp Pulse Resp BP Pulse Ox
97.7 F 110 24 135/89 92
10/19/24 13:11 10/19/24 19:00 10/19/24 19:00 10/19/24 19:00 10/19/24 18:45
Physical Exam
General: Well Developed, Well Nourished, No Apparent Distress, Conversant and Obese
HEENT: NormoCephalic, Moist mucous membranes, Atraumatic, Nose Appears Normal and Ears Appear Normal
Respiratory: Clear and Decreased Breath Sounds
Cardiac: S1/S2, Regular Rhythm and Tachycardia
Breast: Deferred by me
GI: Soft, Non Tender, Non Distended and Normal Bowel Sounds; No Organomegaly
Rectal: Deferred by Provider
Genito-urinary: Deferred by me
Musculoskeletal: No Clubbing, No Cyanosis and No Edema
Skin: Warm and IV/Catheter Site
Neuro: Awake, Alert, AO x 3, Nonfocal/grossly intact and Tremors
Laboratory Results
-
10/19/24 13:28
10/19/24 17:38
Laboratory Results
Lactic Acid 2.8 mmol/L (0.7-2.0) H 10/19/24 17:38
Total Bilirubin 0.8 mg/dl (0.2-1.3) 10/19/24 17:38
AST 138 U/L (14-36) H 10/19/24 17:38
ALT 52 U/L (0-35) H 10/19/24 17:38
Alkaline Phosphatase 127 U/L (38-126) H 10/19/24 17:38
Lipase 116 U/L (23-300) 10/19/24 13:28
Data Reviewed
-
Diagnostic Radiology: Report Reviewed by me (CXR: No evidence of active cardiopulmonary disease.)
CT Scan: Report Reviewed by me (Abd/Pel:there is no evidence for bowel obstruction or free intraperitoneal air. No gross evidence for significant bowel wall thickening. No evidence for appendicitis. A believe that I can identify a normal-appearing
appendix. Moderate elevation right hemidiaphragm, stable. Fatty infiltration of t)
Lab Data: Labs Reviewed by me (WBC 11.2, Neut 86.4, Lactic 2.8, Ca + 7.8 (corrected Ca+ 8.4), AST 138, ALT 52, Alk Phos 127)
Impression/Plan
-
IMPRESSION/PLAN:
#Transaminitis
#alcohol dependence
#alcohol withdraw
2 large glass of wine daily, until 5 days ago
WBC 11.2, Neut 86.4, Lactic 2.8, Ca + 7.8 (corrected Ca+ 8.4), AST 138, ALT 52, Alk Phos 127
UA: not suggestive of UTI
Urine Cx: pending
Blood Cx: pending
CXR: No evidence of active cardiopulmonary disease.
Abd/Pel CT: There is no evidence for bowel obstruction or free intraperitoneal air. No gross evidence for significant bowel wall thickening.
No evidence for appendicitis. A believe that I can identify a normal-appearing appendix.
Moderate elevation right hemidiaphragm, stable.
Fatty infiltration of the liver.
1.7 cm lobulated low-density lesion within the spleen, stable from examination of December 20, 2023, most likely a small cyst or hemangioma.
Bony degenerative changes as described.
EKG: SINUS TACHYCARDIA
- Admit to med/surg
- MSAS protocol
- Phenobarb taper
- encourage continued alcohol cessation
#anxiety
#bipolar
- continue bupropion and fluoxetine
#COPD
- DuoNeb PRN
- restart Albuterol HFA
- restart Spiriva upon discharge
#Hx CVA (Terry De León 12/2023)?
- start Aspirin daily
- PT consult
#hypertension
#hypercholesterolemia
#NIDDM
Code status:
DVT prophylaxis: Lovenox Sq
[2024-10-19 21:36] LABS: INR 0.94; PT 12.9 Sec (11.4-14.6)
[2024-10-19 21:37] LABS: APTT 34.5 Sec (23.4-35.0)
[2024-10-19 21:43] LABS: GGTP 492 U/L (12-43); Phosphorus 3.4 mg/dl (2.5-4.5)
[2024-10-19 21:51] LABS: B-Hydroxybutyrate 0.06 mmol/L (0.02-0.27)
[2024-10-19] MEDS: ATIVAN 1 MG PO (23:14)
[2024-10-19] MEDS: PHENOBARBITAL 97.5 MG IV (23:20)
--- NOTE | 2024-10-19 23:30 | PTCARENOTE ---
Patient arrived to room 326 from ED via stretcher. Patient safely scooted into bed with staff assistance due to feeling shaky. Patient assessed, oriented to room, call stuart within reach. Plan of care ongoing.
[2024-10-20 06:19] LABS: Hematocrit 34.8 % (37.0-47.0); Mean Corp Hgb Conc. 34.5 g/dL (33.0-37.0); Mean Corpuscular Hgb 33.4 pg (27.0-31.0); Mean Corpuscular Volume 96.9 fL (81.0-99.0); Mean Platelet Volume 8.9 fL (7.4-10.4); Platelet Count 160 10^3/uL (130-400); Red Blood Cell Count 3.59 10^6/uL (4.20-5.40); Red Cell Dist. Width 12.8 % (11.5-14.5)
[2024-10-20 06:42] LABS: Blood Urea Nitrogen 3 mg/dl (7-17); Carbon Dioxide 21 mmol/L (22-30); Chloride 110 mmol/L (98-107); Estimated Creatinine Clearance 89 ml/min; Glucose 105 mg/dl (70-99); Potassium 3.8 mmol/L (3.5-5.1); Sodium 136 mmol/L (135-145); eGFR > 60.00
[2024-10-20 07:00] VITALS: BP 131/80
[2024-10-20] MEDS: PHENOBARBITAL 97.5 MG IV ×3 (08:18→21:56)
[2024-10-20] MEDS: NSS 1000 IV ×2 (08:18→17:05)
[2024-10-20] MEDS: THIAMINE INJECTION 200 MG IV ×2 (08:18→20:26)
[2024-10-20] MEDS: WELLBUTRIN XL (24 hour extended release) 300 MG PO (08:19)
[2024-10-20] MEDS: FOLVITE 1 MG PO (08:19)
[2024-10-20] MEDS: PROZAC 40 MG PO (08:19)
[2024-10-20 08:36] LABS: Glucose - Point of Care 135 mg/dl (70-99)
[2024-10-20 08:45] LABS: Glycohemoglobin (HgbA1c) 5.2 % (4.0-5.6)
[2024-10-20 09:26] VITALS: BP 117/69; BP 127/80; PULSE 100; O2SAT 95
--- NOTE | 2024-10-20 09:33 | CM ---
Addendum entered by Marcy Xiong 10/20/24 12:07:
Pt declined speaking with [facility]. We spoke about SNF as an option and Bella is agreeable to going to SNF, would like a facility close to where she lives.
Referrals sent to [facility] for consideration. Await determination re: available beds. No precert required; pt has traditional Medicare and [facility].
Original Note:
Received consult for Substance/ETOH counseling. Pt is known to CM from prior hospitalizations. Bella lives with her S.O in a 1 story home with 4 entry steps. They typically share the household duties (cooking, cleaning, laundry, etc).
Bella reports being independent in ambulation and ADLs (has a cane and a walker in the home if needed); however due to the loss of her sister, with whom she was very close, she been struggling with her , and has not been able to maintain
sobriety.
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
Plan: CM to speak with patient regarding [facility] referral
PCP: Sue Espinal
Pharmacy: [facility] on [facility] in [place]
[2024-10-20 11:10] LABS: Lactic Acid 1.6 mmol/L (0.7-2.0)
[2024-10-20] MEDS: ROCEPHIN 1000 MG IV (11:30)
[2024-10-20] MEDS: STERILE WATER FOR INJECTION 10 ML IV (11:31)
[2024-10-20 11:39] LABS: Glucose - Point of Care 129 mg/dl (70-99)
--- NOTE | 2024-10-20 11:48 | W.PN.HOSP.TC ---
Today's Communication/Plan
-
Monitor vitals
See plan
Follow urine culture, blood culture
Start ceftriaxone
Continue with fluids
Repeat lactate
Continue phenobarbital, MSAS protocol
Assessment / Plan
Assessment / Plan
General: Well Developed, Well Nourished, No Apparent Distress, Conversant and Obese
HEENT: NormoCephalic, Moist mucous membranes, Atraumatic
Respiratory: Clear and Decreased Breath Sounds
Cardiac: S1/S2, Regular Rhythm and Tachycardia
GI: Soft, Non Tender, Non Distended and Normal Bowel Sounds
Musculoskeletal:No Edema
Neuro: Awake, Alert, AO x 3, Nonfocal/grossly intact and Tremors
Transaminitis, acute on chronic
#alcohol dependence
#alcohol withdrawal
2 large glass of wine daily, until 5 days ago
CXR: No evidence of active cardiopulmonary disease.
Abd/Pel CT: There is no evidence for bowel obstruction or free intraperitoneal air. No gross evidence for significant bowel wall thickening.
No evidence for appendicitis. A believe that I can identify a normal-appearing appendix.
Moderate elevation right hemidiaphragm, stable.
Fatty infiltration of the liver.
1.7 cm lobulated low-density lesion within the spleen, stable from examination of December 20, 2023, most likely a small cyst or hemangioma.
Bony degenerative changes as described.
EKG: SINUS TACHYCARDIA
- MSAS protocol
- Phenobarb taper
- encourage continued alcohol cessation
Lactic acidosis
Resolved
Sepsis likely secondary to UTI
Follow urine culture, blood culture
Started ceftriaxone
#anxiety
#bipolar
- continue bupropion and fluoxetine
#COPD
- DuoNeb PRN
- restart Albuterol HFA
- restart Spiriva upon discharge
#Hx CVA (Terry De León 12/2023)?
- start Aspirin daily
- PT/OT consult
#hypertension
#hypercholesterolemia
#NIDDM
Code status:
DVT prophylaxis: Lovenox Sq
I spent a total of 52 minutes with the patient or on the floor. More than 50% of this time involved counseling and coordination of care.
Anticipated Discharge: 24 - 48 hours
Subjective/Interval History
-
Date of Service: October 20, 2024
denies nausea
Objective Data
-
Labs:
Laboratory Results
10/20/24
05:50
WBC 5.0
Hgb 12.0 D
Hct 34.8 L
Plt Count 160 D
Sodium 136
Potassium 3.8
Chloride 110 H
Carbon Dioxide 21 L
BUN 3 L
Creatinine 0.6
Glucose 105 H
Calcium 8.0 L
Vital Signs:
Vital Signs
Temp Pulse Resp BP Pulse Ox
98.3 F 91 18 131/80 95
10/20/24 07:00 10/20/24 07:00 10/20/24 07:00 10/20/24 07:00 10/20/24 07:00
[2024-10-20] MEDS: ASPIR LOW (ENTERIC COATED) 81 MG PO (12:28)
[2024-10-20 14:16] VITALS: BMI 26.0
[2024-10-20 15:00] VITALS: BP 132/82
[2024-10-20 15:05] VITALS: BP 132/82; PULSE 108; O2SAT 94
[2024-10-20 16:26] LABS: Glucose - Point of Care 128 mg/dl (70-99)
[2024-10-20] MEDS: LOVENOX 40 MG SC (17:05)
--- NOTE | 2024-10-20 19:12 | PTCARENOTE ---
Stool sample sent during shift, negative for C-diff. Patient had one episode of diarrhea this morning. No c/o N/V during shift. Checked frequently, call stuart within reach.
[2024-10-20 21:31] LABS: Glucose - Point of Care 118 mg/dl (70-99)
[2024-10-20 22:16] VITALS: BP 138/84
[2024-10-20] MEDS: ATIVAN 1 MG PO (22:19)
[2024-10-21] MEDS: NSS 1000 IV ×2 (05:14→15:25)
[2024-10-21 06:43] LABS: % Basophils 0.7 % (0-2); % Eosinophils 1.3 % (0-6); % Immature Granulocytes 0.2 % (0-0.5); % Lymphocytes 24.7 % (20.5-51.1); % Monocytes 8.5 % (1.7-9.3); % Neutrophils 64.6 % (42.2-75.2); Absolute Eosinophils 0.1 10^3/uL (0-0.7); Absolute Lymphocytes 1.1 10^3/uL (1.2-3.4); Absolute Monocytes 0.4 10^3/uL (0.1-0.6); Hematocrit 32.6 % (37.0-47.0); Hemoglobin 11.7 g/dL (12.0-16.0); Mean Corp Hgb Conc. 35.9 g/dL (33.0-37.0); Mean Corpuscular Hgb 34.7 pg (27.0-31.0); Mean Corpuscular Volume 96.7 fL (81.0-99.0); Mean Platelet Volume 9.2 fL (7.4-10.4); Nucleated Red Blood Cells % 0 %; Platelet Count 129 10^3/uL (130-400); Red Blood Cell Count 3.37 10^6/uL (4.20-5.40); Red Cell Dist. Width 12.6 % (11.5-14.5); White Blood Cell Count 4.6 10^3/uL (4.8-10.8)
[2024-10-21 06:53] LABS: ALT (SGPT) 41 U/L (0-35); AST (SGOT) 84 U/L (14-36); Alkaline Phosphatase 110 U/L (38-126); Blood Urea Nitrogen 2 mg/dl (7-17); Calcium 8.5 mg/dl (8.4-10.2); Carbon Dioxide 24 mmol/L (22-30); Chloride 109 mmol/L (98-107); Estimated Creatinine Clearance 89 ml/min; Glucose 103 mg/dl (70-99); Potassium 3.4 mmol/L (3.5-5.1); Sodium 136 mmol/L (135-145); Total Bilirubin 0.8 mg/dl (0.2-1.3); Total Protein 5.3 g/dl (6.3-8.2); eGFR > 60.00
[2024-10-21 07:00] VITALS: BP 135/83
[2024-10-21] MEDS: PROZAC 40 MG PO (07:58)
[2024-10-21] MEDS: WELLBUTRIN XL (24 hour extended release) 300 MG PO (07:58)
[2024-10-21] MEDS: ASPIR LOW (ENTERIC COATED) 81 MG PO (07:58)
[2024-10-21] MEDS: FOLVITE 1 MG PO (07:59)
[2024-10-21] MEDS: THIAMINE INJECTION 200 MG IV ×2 (07:59→20:32)
[2024-10-21] MEDS: PHENOBARBITAL 97.5 MG IV ×2 (08:00→16:15)
[2024-10-21 08:03] LABS: Glucose - Point of Care 116 mg/dl (70-99)
[2024-10-21] MEDS: KCL 20 MEQ PO (09:52)
[2024-10-21] MEDS: STERILE WATER FOR INJECTION 10 ML IV (09:54)
[2024-10-21] MEDS: ROCEPHIN 1000 MG IV (09:55)
[2024-10-21 11:29] LABS: Glucose - Point of Care 127 mg/dl (70-99)
--- NOTE | 2024-10-21 11:52 | W.PN.HOSP.TC ---
Today's Communication/Plan
-
Monitor vital signs see plan
Continue with phenobarbital
MSAS
Replete potassium
Hopeful discharge tomorrow
monitor LFT's
Assessment / Plan
Assessment / Plan
General: Well Developed, Well Nourished, No Apparent Distress, Conversant and Obese
HEENT: NormoCephalic, Moist mucous membranes, Atraumatic
Respiratory: Clear and Decreased Breath Sounds
Cardiac: S1/S2, Regular Rhythm and Tachycardia
GI: Soft, Non Tender, Non Distended and Normal Bowel Sounds
Musculoskeletal:No Edema
Neuro: Awake, Alert, AO x 3, Nonfocal/grossly intact and Tremors
Transaminitis, acute on chronic
#alcohol dependence
#alcohol withdrawal
2 large glass of wine daily, until 5 days ago
CXR: No evidence of active cardiopulmonary disease.
Abd/Pel CT: There is no evidence for bowel obstruction or free intraperitoneal air. No gross evidence for significant bowel wall thickening.
No evidence for appendicitis. A believe that I can identify a normal-appearing appendix.
Moderate elevation right hemidiaphragm, stable.
Fatty infiltration of the liver.
1.7 cm lobulated low-density lesion within the spleen, stable from examination of December 20, 2023, most likely a small cyst or hemangioma.
Bony degenerative changes as described.
EKG: SINUS TACHYCARDIA
- MSAS protocol
- Phenobarb taper
- encourage continued alcohol cessation
Lactic acidosis
Resolved
Hypokalemia
Replete
Sepsis likely secondary to UTI
urine culture, blood culture NGTD
cw ceftriaxone
#anxiety
#bipolar
- continue bupropion and fluoxetine
#COPD
- DuoNeb PRN
- restart Albuterol HFA
- restart Spiriva upon discharge
#Hx CVA (Terry De León 12/2023)?
- start Aspirin daily
- PT/OT consult
#hypertension
#hypercholesterolemia
#NIDDM
Code status:
DVT prophylaxis: Lovenox Sq
PT/OT rec SNF; patient now refusing
Anticipated Discharge: Within 24 hours
Subjective/Interval History
-
Date of Service: October 21, 2024
denies pain
Objective Data
-
Labs:
Laboratory Results
10/21/24
05:57
WBC 4.6 L
Hgb 11.7 L
Hct 32.6 L
Plt Count 129 L
Sodium 136
Potassium 3.4 L
Chloride 109 H
Carbon Dioxide 24
BUN 2 L
Creatinine 0.6
Glucose 103 H
Calcium 8.5
Total Bilirubin 0.8
AST 84 H
ALT 41 H
Alkaline Phosphatase 110
Vital Signs:
Vital Signs
Temp Pulse Resp BP Pulse Ox
98.7 F 94 18 135/83 95
10/21/24 07:00 10/21/24 07:00 10/21/24 07:00 10/21/24 07:00 10/21/24 07:00
I&O
10/20/24 10/21/24 10/22/24
06:59 06:59 06:59
Intake Total 1800 / 1800
Balance 1800 / 1800
[2024-10-21 12:44] VITALS: BP 118/83
[2024-10-21 15:03] VITALS: BP 125/70
[2024-10-21] MEDS: IMODIUM 2 MG PO (16:15)
[2024-10-21 16:35] LABS: Glucose - Point of Care 132 mg/dl (70-99)
[2024-10-21] MEDS: LOVENOX 40 MG SC (17:34)
[2024-10-21 21:25] LABS: Glucose - Point of Care 109 mg/dl (70-99)
[2024-10-21] MEDS: LUMINAL 64.8 MG PO (21:37)
[2024-10-21 23:00] VITALS: BP 117/77
[2024-10-22 06:16] LABS: % Basophils 0.6 % (0-2); % Eosinophils 1.3 % (0-6); % Immature Granulocytes 0.6 % (0-0.5); % Lymphocytes 26.8 % (20.5-51.1); % Monocytes 10.2 % (1.7-9.3); % Neutrophils 60.5 % (42.2-75.2); Absolute Eosinophils 0.1 10^3/uL (0-0.7); Absolute Lymphocytes 1.4 10^3/uL (1.2-3.4); Absolute Monocytes 0.5 10^3/uL (0.1-0.6); Absolute Neutrophils 3.2 10^3/uL (1.4-6.5); Hematocrit 34.1 % (37.0-47.0); Hemoglobin 12.4 g/dL (12.0-16.0); Mean Corp Hgb Conc. 36.4 g/dL (33.0-37.0); Mean Corpuscular Hgb 34.3 pg (27.0-31.0); Mean Corpuscular Volume 94.5 fL (81.0-99.0); Mean Platelet Volume 9.5 fL (7.4-10.4); Nucleated Red Blood Cells % 0 %; Platelet Count 119 10^3/uL (130-400); Red Blood Cell Count 3.61 10^6/uL (4.20-5.40); Red Cell Dist. Width 12.5 % (11.5-14.5); White Blood Cell Count 5.2 10^3/uL (4.8-10.8)
[2024-10-22 06:38] LABS: ALT (SGPT) 36 U/L (0-35); AST (SGOT) 59 U/L (14-36); Albumin 3.5 g/dl (3.5-5.0); Alkaline Phosphatase 107 U/L (38-126); Blood Urea Nitrogen 3 mg/dl (7-17); Calcium 9.1 mg/dl (8.4-10.2); Carbon Dioxide 25 mmol/L (22-30); Chloride 106 mmol/L (98-107); Estimated Creatinine Clearance 89 ml/min; Glucose 100 mg/dl (70-99); Potassium 3.5 mmol/L (3.5-5.1); Sodium 134 mmol/L (135-145); Total Bilirubin 0.6 mg/dl (0.2-1.3); Total Protein 5.9 g/dl (6.3-8.2); eGFR > 60.00
[2024-10-22 07:00] VITALS: BP 126/79
[2024-10-22 07:38] LABS: Glucose - Point of Care 112 mg/dl (70-99)
[2024-10-22] MEDS: WELLBUTRIN XL (24 hour extended release) 300 MG PO (08:42)
[2024-10-22] MEDS: PROZAC 40 MG PO (08:42)
[2024-10-22] MEDS: THIAMINE INJECTION 200 MG IV (08:43)
[2024-10-22] MEDS: ASPIR LOW (ENTERIC COATED) 81 MG PO (08:43)
[2024-10-22] MEDS: LUMINAL 64.8 MG PO (08:43)
[2024-10-22] MEDS: FOLVITE 1 MG PO (08:43)
[2024-10-22] MEDS: STERILE WATER FOR INJECTION 10 ML IV (10:15)
[2024-10-22] MEDS: ROCEPHIN 1000 MG IV (10:15)
[2024-10-22 11:33] LABS: Glucose - Point of Care 127 mg/dl (70-99)
--- NOTE | 2024-10-22 12:15 | W.PN.HOSP.TC ---
Addendum entered and electronically signed by Valdez Acevedo MD 10/22/24 14:13:
Patient decided to leave AGAINST MEDICAL ADVICE. Still on phenobarbital. Risks were discussed with patient and she still chose to leave AMA. AMA form signed.
Original Note:
Today's Communication/Plan
-
Monitor vital signs see plan
Continue with phenobarbital, still withdrawing
MSAS
PT
hopeful dc tomorrow
abx
Assessment / Plan
Assessment / Plan
General: Well Developed, Well Nourished, No Apparent Distress, Conversant and Obese
HEENT: NormoCephalic, Moist mucous membranes, Atraumatic
Respiratory: Clear and Decreased Breath Sounds
Cardiac: S1/S2, Regular Rhythm and Tachycardia
GI: Soft, Non Tender, Non Distended and Normal Bowel Sounds
Musculoskeletal:No Edema
Neuro: Awake, Alert, AO x 3, Nonfocal/grossly intact and Tremors
Transaminitis, acute on chronic
#alcohol dependence
#alcohol withdrawal
2 large glass of wine daily, until 5 days ago
CXR: No evidence of active cardiopulmonary disease.
Abd/Pel CT: There is no evidence for bowel obstruction or free intraperitoneal air. No gross evidence for significant bowel wall thickening.
No evidence for appendicitis. A believe that I can identify a normal-appearing appendix.
Moderate elevation right hemidiaphragm, stable.
Fatty infiltration of the liver.
1.7 cm lobulated low-density lesion within the spleen, stable from examination of December 20, 2023, most likely a small cyst or hemangioma.
Bony degenerative changes as described.
EKG: SINUS TACHYCARDIA
- MSAS protocol
- Phenobarb taper; possible dc tomorrow; still with sweating.
- encourage continued alcohol cessation
Lactic acidosis
Resolved
Hypokalemia
Replete
Sepsis likely secondary to UTI
urine culture, blood culture NGTD
DC antibiotics after today
#anxiety
#bipolar
- continue bupropion and fluoxetine
#COPD
- DuoNeb PRN
- restart Albuterol HFA
- restart Spiriva upon discharge
#Hx CVA (Terry De León 12/2023)?
- start Aspirin daily
- PT/OT consult
#hypertension
#hypercholesterolemia
#NIDDM
Code status:
DVT prophylaxis: Lovenox Sq
PT/OT rec SNF; patient now refusing
Anticipated Discharge: Within 24 hours
Subjective/Interval History
-
Date of Service: October 22, 2024
sweating this morning
Objective Data
-
Labs:
Laboratory Results
10/22/24
05:45
WBC 5.2
Hgb 12.4
Hct 34.1 L
Plt Count 119 L
Sodium 134 L
Potassium 3.5
Chloride 106
Carbon Dioxide 25
BUN 3 L
Creatinine 0.6
Glucose 100 H
Calcium 9.1
Total Bilirubin 0.6
AST 59 H
ALT 36 H
Alkaline Phosphatase 107
Vital Signs:
Vital Signs
Temp Pulse Resp BP Pulse Ox
98.4 F 86 18 126/79 97
10/22/24 07:00 10/22/24 07:00 10/22/24 07:00 10/22/24 07:00 10/22/24 07:00
I&O
10/21/24 10/22/24 10/23/24
06:59 06:59 06:59
Intake Total 1800 / 1800 2159
Balance 1800 / 1800 2159
--- NOTE | 2024-10-22 13:43 | PTCARENOTE ---
Pt's mood escalating, informed this RN that she will leave AMA. Dr. Acevedo contacted, called pt in room. Pt adamant about leaving, IV removed, AMA paper signed. Boyfriend on his way to pickle pumper patient.
--- NOTE | 2024-10-22 14:01 | W.DCSUMMARY ---
Discharge Summary
Discharge Data
Date of Admission: 10/19/24
Date of Discharge: 10/22/24
-
Pending Results: No
Hospital Course
59-year-old female with history of anxiety, bipolar, COPD, CVA, hypertension, hyperlipidemia, diabetes mellitus, alcohol dependence came to the hospital with acute alcohol withdrawal. Patient was started on phenobarbital taper along with Ativan as
needed per protocol. Patient also had transaminitis which continue to improve over time. Initially she also had lactic acidosis which was also improving. She also had urinary tract infection which was treated with antibiotics. On 10/22/2024
patient decided to leave AGAINST MEDICAL ADVICE despite discussion of all the risks involved. Patient left AMA on 10/22/2024.
Discharge Plan
-
Patient Disposition: Against Medical Advice
Discharge Diagnosis/Procedures: Alcohol withdrawal with dependence
Transaminitis
Lactic acidosis
UTI
Anxiety/bipolar
Referrals:
Sue Espinal DO [Family Provider, Family Practice]
Prescriptions:
No Action
fluoxetine 40 mg capsule
40 mg PO DAILY
bupropion HCl 300 mg tablet extended release 24 hr
300 mg PO DAILY
Combivent Respimat 20-100 mcg/actuation mist
2 puff INHALATION R BIDPRN PRN (Reason: sob)
Discharge Orders:
Discharge Patient (As Directed); Ordered 10/22/24
Ordered By: Valdez Acevedo
Discharge Date and Time
Discharge Date/Time: 10/22/24 14:17
Print Language: LUXEMBOURGER
--- NOTE | 2024-10-22 14:18 | CM ---
Addendum entered by Marcy Xiong 10/22/24 14:23:
Pt did not get a copy of the 2nd IMM; left AMA prior to CM visit this afternoon.
Original Note:
CM following for transfer to [facility], however Colleed left AMA. Her SO provided transport home. [facility] notified of pt's change in plans.
Plan: AMA discharge
== END 2024-10-22 14:17 | disposition left against medical advice (07) | DRG 872 ==
LOC: 3 WEST ACU 20:35
PROVIDERS: Emergency Medicine; Nurse Practitioner Family; Physician Assistant; ADMITTING PHYSICIAN Hospitalist; ATTENDING PHYSICIAN Internal Medicine; EMERGENCY PHYSICIAN Emergency Medicine; FAMILY PHYSICIAN Family Medicine
DX: A41.9 Sepsis, unspecified organism (principal); F10.239 Alcohol dependence with withdrawal, unspecified; E87.20 Acidosis, unspecified; N39.0 Urinary tract infection, site not specified; J44.89 Other specified chronic obstructive pulmonary disease; F41.9 Anxiety disorder, unspecified; F31.9 Bipolar disorder, unspecified; E11.9 Type 2 diabetes mellitus without complications; E87.6 Hypokalemia; Z86.73 Personal history of transient ischemic attack (TIA), and cerebral infarction without residual deficits; Z53.29 Procedure and treatment not carried out because of patient's decision for other reasons
CPT/HCPCS: 71045; 74177; 80048; 80053; 80306; 80307; 81003; 81015; 82010; 82077; 82962; 82977; 83036; 83605; 83690; 83735; 84100; 85025; 85027; 85610; 85730; 87040; 87045; 87046; 87086; 87324; 87427; 87449; 93005; 96361; 96374; 96375; 96376; 97116; 97163; 97167; 97530; 99285; 99406; Q9967

== ENCOUNTER 2024-11-13 12:17 | Inpatient (IN) | payer MEDICARE, OTHER, SELFPAY ==
[2024-11-12] VITALS (10 sets, daily range): BP systolic 101–132; BP diastolic 60–93; BMI 26.4; BMI 25.6
--- NOTE | 2024-11-12 12:29 | ED.GENMED ---
History of Present Illness
General
Chief Complaint: Breathing Problem
Source: patient
Exam Limitations: none
Time Seen by Provider: 11/12/24 12:20
Nursing documentation reviewed up to this point in time: agreed with
History of Present Illness
History of Present Illness:
The patient is a 59-year-old female w h/o HTN, HLD, TIA, Anxiety, Bipolar, alcoholism who presents with severe diarrhea and tremors after ceasing alcohol consumption seven days ago. The patient last consumed alcohol, specifically wine, a week prior
and subsequently developed severe diarrhea, persistent tremors, and associated anxiety. She has taken nothing for her symptoms. She states she has not consumed any alcohol since that time. The diarrhea is described as watery and black in color,
without any recent intake of bismuth subsalicylate (Pepto-Bismol). The last bowel movement was at 7:30 AM this morning. The patient reported dry heaving but denied any abdominal pain. She experiences right shoulder pain which began upon arrival in
the emergency department. She has not undertaken any measures to alleviate her symptoms since onset. The patient has a past history of alcohol rehab and expresses no interest in pursuing rehabilitation again.
Denies CP or SOB, abd pain.
Past History
Past History
ED Past Medical History: HTN, Hypercholesterolemia, Psychiatric (Anxiety, Bipolar) and Other (Hyponatremia); Negative Asthma
ED Past Surgical History: Gynecological (Tubal) and Other (Breast surgery, Monty lumpectomy)
Social History
Tobacco: Smoker
Alcohol: Daily (Wine 6 glasses)
Drug: None
Personal: Partner
Living: with roommate (lives with boyfriend)
Employment: Employed
Review of Systems
Review of Systems
Allergies reviewed?: Yes
All Other Systems: ROS reviewed and negative except as documented in HPI and ROS
Constitutional: Denies fever
Respiratory: Denies trouble breathing
Cardiac: Denies chest pain or diaphoresis
ABD/GI: Reports nausea, diarrhea and black stools; Denies abdominal pain or vomiting
: Denies dysuria or difficulty voiding
Musculoskeletal: Reports no symptoms
Skin: Reports no symptoms
Neurological: Reports no symptoms
Phy Exam
Physical Exam
Physical Exam:
GENERAL: No acute distress. A&Ox3.
CONSTITUTIONAL: Afebrile.
EYES: clear, conjunctivae normal
ENMT: dry mucus membranes, Pharynx nl
RESPIRATORY: Regular respirations, nonlabored, lungs clear.
CARDIOVASCULAR: Regular rate and rhythm, no murmurs, no rubs.
GI: Soft, nontender, normal BS
Rectal: soft, brown heme neg stool
MUSCULOSKELETAL: Moves with ease. Well perfused.
SKIN: Warm, dry, pink
PSYCH: Anxious mood and affect. Well kept, interactive and appropriate
NEUROLOGIC: Awake, alert and oriented. Tremulous. No focal neurological deficits
Scores
Heart Failure Risk
Heart Failure Risk Score: Not Applicable
Withdrawal Assessment of Alcohol
Withdrawal Assessment Completed?: Yes
Nausea and Vomiting: Intermittent nausea with dry heaves
Tactile Disturbances: None
Tremor: Moderate, with patient's arms extended
Auditory Disturbances: Not present
Paroxysmal Sweats: No sweat visible
Visual Disturbances: Not present
Anxiety: Moderately anxious, or guarded, so anxiety is inferred
Headache, Fullness in Head: Not present
Agitation: Normal activity
Orientation and clouding of sensorium: Oriented and can do serial additions
Total CIWA Score: 12
Alcohol Withdrawal Medication Recommendation: Equal to MSAS Score 5-7. Lorazepam 1mg IV or PO NOW & re-assess q2hrs
Course
Orders/Labs/Results
Orders:
Orders
11/12/24 11:13
Electrocardiogram (*1) Urgent
Reason for Study: Shortness of Breath
11/12/24 12:30
Lorazepam [Ativan] 1 mg IV NOW STA
11/12/24 12:31
0.9% Sodium Chloride 1000 ml [Nss] 1,000 ml IV BOLUS
11/12/24 13:05
Alcohol Urgent
Complete Blood Count/With Diff Urgent
Comprehensive Metabolic Panel Urgent
Lipase Urgent
Serum Osmolality Urgent
Comment: ADD ON
TSH Urgent
Comment: ADD ON
Troponin I Urgent
11/12/24 14:19
Add On- LAB Urgent
Tests Added?: Urine sodium, urine osmolality, serum osmolality, TSH
11/12/24 Dinner
1800 calorie (15 carb) Diabetic
At Your Request: Full Participation
11/12/24 15:26
Drug Screen, Urine [Urine Drug Abuse Screen] Routine
11/12/24 15:44
Lorazepam [Ativan] 2 mg .ROUTE .STK-MED ONE
11/12/24 15:45
Lorazepam [Ativan] 1 mg IV NOW STA
11/12/24 15:53
Admit/Transfer Patient As Directed
Co-Sign Provider:
Level of Care: Observation services
Assign to:: Medical/Surgical
Physician / Group: Ale Callejas
Diagnosis: Transaminitis, alcohol dependency, alcohol withdraw
11/12/24 15:54
PRN Pain Medication Management As Directed
May give lesser potent ordered pain med per pt: Yes
preference::
Protocol:: Medication orders for pain may be administered in a
manner that supports deferring to patient preference
when the pt is:
- Requesting an ordered lesser potent pain medication.
Least to most potent pain medications are defined
as: acetaminophen < NSAID < tramadol < opioids
(morphine, oxycodone, hydromorphone).
- Requesting a lesser dose of the same medication IF
ORDERED.
- Requesting a less intrusive route of administration
if both routes are prescribed by the provider (PO <
IV).
11/12/24 15:55
Code Status As Directed
Resuscitation Status: Full Code
11/12/24 16:00
Stool for occult blood [Hemetest Stools] As Directed
11/12/24 19:23
0.9% Sodium Chloride 1000 ml [Nss] 1,000 ml IV 80 mls/hr
0.9% Sodium Chloride [Nss (Preservative Free)] See Protocol IV PRN PRN
Acetaminophen [Tylenol] 650 mg PO Q4HPRN PRN
Albuterol [ProAIR HFA INHALER] 2 puff INH R Q4HPRN PRN
Enoxaparin Sodium [Lovenox] 40 mg SC QPM
FOLic ACID [Folvite] 1 mg 0.9% Sodium Chloride 50 ml [Nss] 50 ml IV DAILYPRN
Ipratropium/Albuterol Sulfate [Duoneb] 3 ml INH R Q4HPRN PRN
Lorazepam [Ativan] 1 mg PO Q2HPRN PRN
Lorazepam [Ativan] 2 mg IV Q1HPRN PRN
Phenobarbital Sodium [Phenobarbital] 260 mg 0.9% Sodium Chloride 100 ml [Nss] 100 ml IV NOW
11/12/24 19:23
Case Management Consult Once
Case Management Consult: Other
Comment: Substance abuse counseling
DIETARY IP CONSULT Routine
Reason for Consult: Nutrition support, possible refeeding guidelines
Urinalysis Routine
Urine Drug Abuse Screen Routine
Activity As Directed
Activity Level: As Tolerated
MSAS SCORE As Directed
MSAS Score 0-4: Repeat MSAS every 2 hours until 0-4 for three consecutive assessments, then every 4 hours x 48
hours.
MSAS Score 5-7: For MILD withdrawl symptoms. Repeat MSAS and RASS every 2 hours
MSAS Score 8-11: For MODERATE withdrawal symptoms. Repeat MSAS and RASS every 1 hour. Consider ICU or IMU
level of care.
MSAS Score > 11: For SEVERE withdrawal symptoms. Repeat MSAS and RASS every 1 hour. Notify provider, consider
ICU level of care.
MSAS Additional Instructions: If no improvement or no decrease in score from severe to moderate within 12
hours, consult psychiatry
MSAS Notify Provider: Notify provider if patient requires more than 10 mg of Lorazepam in eight hour period.
Vital Signs As Directed
Frequency: Per unit guidelines
Weight As Directed
Frequency: Once
Comment: on admission
DX Deep Vein Thrombosis Video Routine
11/12/24 19:40
Lorazepam [Ativan] 1 mg PO Q1HPRN PRN
11/12/24 19:57
B-Hydroxybutyrate Urgent
GGTP Urgent
Magnesium Urgent
Phosphorus Urgent
11/12/24 20:00
Thiamine Injection 200 mg IV Q12
11/12/24 22:00
Phenobarbital Sodium [Phenobarbital] 97.5 mg IV TID
11/13/24 06:00
Basic Metabolic Panel IN AM
11/13/24 08:00
Bupropion(24Hr)Extended Releas [WELLBUTRIN XL (24 hour extended release)] 300 mg PO DAILY
FOLic ACID [Folvite] 1 mg PO DAILY
Fluoxetine HCl [Prozac] 40 mg PO DAILY
11/14/24 22:00
Phenobarbital [Luminal] 64.8 mg PO TID
11/15/24 20:00
Thiamine HCl [Vitamin B1] 100 mg PO BID
11/16/24 22:00
Phenobarbital [Luminal] 32.4 mg PO TID
Abnormal Lab Results
11/12/24
13:05
RBC 4.16 L 10^6/uL
(4.20-5.40)
MCH 34.1 H pg
(27.0-31.0)
Abs Immat Gran (auto) 0.1 H 10^3/uL
(0-0.05)
Absolute Monos (auto) 0.9 H 10^3/uL
(0.1-0.6)
Immature Gran % 0.7 H %
(0-0.5)
Monocytes % 13.3 H %
(1.7-9.3)
Sodium 129 L mmol/L
(135-145)
Carbon Dioxide 19 L mmol/L
(22-30)
Creatinine 0.5 L mg/dL
(0.6-1.0)
Glucose 140 H mg/dl
(70-99)
Serum Osmolality 269 L mOsm/kg
(275-300)
Total Bilirubin 1.6 H mg/dl
(0.2-1.3)
AST 187 H U/L
(14-36)
ALT 70 H U/L
(0-35)
Alkaline Phosphatase 194 H U/L
(38-126)
11/12/24 13:05
11/12/24 13:05
Vital Signs
Initial and Last Documented VS:
Initial Vital Signs
Temp Pulse Resp BP Pulse Ox
98.0 F 59 18 126/86 93
11/12/24 11:07 11/12/24 11:07 11/12/24 11:07 11/12/24 11:07 11/12/24 11:07
Last Documented Vital Signs
Temp Pulse Resp BP Pulse Ox
98.3 F 100 27 101/62 95
11/12/24 15:30 11/12/24 19:15 11/12/24 19:15 11/12/24 18:00 11/12/24 17:15
MDM/Problems Addressed
Differential Diagnosis Includes:
The Differential Diagnosis includes, in no particular order and is not limited to:
1. Alcohol withdrawal syndrome.
2. Gastrointestinal bleed.
4. Gastritis.
5. Peptic ulcer disease.
7. Anxiety disorder.
8. Generalized seizure disorder due to alcohol cessation.
9. Dehydration.
10. Electrolyte imbalance.
MDM/Problems Addressed:
The patient is a 59-year-old female w h/o HTN, HLD, TIA, Anxiety, Bipolar, alcoholism who presents with severe diarrhea and tremors after ceasing alcohol consumption seven days ago. The patient last consumed alcohol, specifically wine, a week prior
and subsequently developed severe diarrhea, persistent tremors, and associated anxiety. She has taken nothing for her symptoms. She states she has not consumed any alcohol since that time. The diarrhea is described as watery and black in color,
without any recent intake of bismuth subsalicylate (Pepto-Bismol). The last bowel movement was at 7:30 AM this morning. The patient reported dry heaving but denied any abdominal pain. She experiences right shoulder pain which began upon arrival in
the emergency department. She has not undertaken any measures to alleviate her symptoms since onset. The patient has a past history of alcohol rehab and expresses no interest in pursuing rehabilitation again.
Denies CP or SOB, abd pain.
Acute:
- Alcohol withdrawal syndrome with severe diarrhea and tremors.
- Black, watery stools.
- Anxiety.
Chronic:
- History of alcohol use disorder.
2:00 p.m.
CB C unremarkable
CMP: Na+ 129, mild elevation in lever enzymes
Troponin WNL
Lipase Normal
Pt feeling better. No diarrhea
Plan: Admit, need for alcoholic counselling, Hyponatremia
Hospitalist notified of admission
3:45 p.m.
Pt requesting more Ativan, becoming anxious,
*Pulse Oximetry
SaO2: 93
Oxygen Mode of Delivery: Room air
Patient hypoxic: no
*EKG
EKG Intrepretation Date: 11/12/24
Interpretation: abnormal
Heart Rate: 115
Rate: tachycardiac
Rhythm: sinus
[place]: normal axis
Interval: normal interval
QRS Pattern: normal QRS
Ischemia: no ischemia
*Critical Care Note
Total Time (30-74mins, 75-104mins- exclusive of procedures): Not Applicable
ED Attending Note
-
Portions of this chart may have been created with voice recognition software.� Occasional wrong word or��sound alike� substitutions may have occurred due to the inherent limitations of voice recognition software.
Discharge Plan
Departure
Patient Disposition: Admit
Date of Disposition: 11/12/24
Time of Disposition: 14:20
Admit to: Med/Surg
Presentation/result/management discussed w/ accepting MD/DO: Hospitalist
Condition: Fair
Discharge Problem:
Alcohol withdrawal, Acute hyponatremia
Interventions
Interventions:
*Risk Screen - Suicide Last Done: 11/12/24 11:07
*General Assessment Last Done: 11/12/24 11:07
*Neglect/Abuse Screening Last Done: 11/12/24 11:07
*ED- Fall Risk Assessment Last Done: 11/12/24 19:15
*ED COVID-19 Vaccine History Last Done: 11/12/24 13:26
*Nursing Disposition Last Done: 11/12/24 19:15
AM-Svfigm-Wxbqgkcbho Assessment Last Done: 11/12/24 13:26
ED- Cardiac Assessment Last Done: 11/12/24 13:26
ED- Pulmonary Assessment Last Done: 11/12/24 13:26
Discharge Date and Time
Discharge Date/Time: 11/12/24 19:24
[2024-11-12 13:15] LABS: Hematocrit 40.0 % (37.0-47.0); Hemoglobin 14.2 g/dL (12.0-16.0); Mean Corp Hgb Conc. 35.5 g/dL (33.0-37.0); Mean Corpuscular Volume 96.2 fL (81.0-99.0); Nucleated Red Blood Cells % 0 %; Platelet Count 174 10^3/uL (130-400); Red Cell Dist. Width 12.3 % (11.5-14.5)
[2024-11-12] MEDS: ATIVAN 1 MG IV ×2 (13:18→15:49)
[2024-11-12] MEDS: NSS 1000 IV ×2 (13:22→20:11)
[2024-11-12 13:36] LABS: ALT (SGPT) 70 U/L (0-35); AST (SGOT) 187 U/L (14-36); Albumin 3.8 g/dl (3.5-5.0); Alkaline Phosphatase 194 U/L (38-126); Blood Urea Nitrogen 8 mg/dl (7-17); Calcium 9.2 mg/dl (8.4-10.2); Carbon Dioxide 19 mmol/L (22-30); Chloride 100 mmol/L (98-107); Estimated Creatinine Clearance 89 ml/min; Glucose 140 mg/dl (70-99); Lipase 238 U/L (23-300); Potassium 3.5 mmol/L (3.5-5.1); Sodium 129 mmol/L (135-145); Total Protein 6.8 g/dl (6.3-8.2); eGFR > 60.00
[2024-11-12 13:48] LABS: Troponin I < 0.012 ng/ml
--- NOTE | 2024-11-12 15:15 | HPS.HSE ---
Family Physician
-
Family Physician: Sue Espinal
Chief Complaint
-
severe diarrhea and tremors
History of Present Illness
Patient is a 59-year-old female with past medical history significant for hypertension, hypercholesterolemia, NIDDM, COPD, anxiety, bipolar, alcohol dependence and [facility] [facility] [place] [place] who [facility] to [facility] for evaluation of severe
diarrhea and tremors after ceasing alcohol consumption seven days ago.
Medical History
Past Medical History
Past Medical History: Reports Other
Additional Past Medical History:
hypertension
hypercholesterolemia
NIDDM
COPD
anxiety
bipolar
alcohol dependence
[facility] [place] [place]
Past Surgical History: Reports Other
Additional Past Surgical History:
Tubularization
bilateral breast lumpectomy
Social History
Tobacco: Former Smoker (Half a pack day, quit 7 days ago, approximately 21.5 pack year history )
Alcohol: Former (2 large glass of wine daily until 5 days ago )
Drug: None
Personal: Partner
Living: With Roomate (with boyfriend )
Employment: Retired
Family History
Family History: Not pertinent and Other (Sister: Pancreatic Ca (); Sister, Father and 2 brothers all with ETOH dependency )
Allergies / Home Medications
Allergies reflects when Allergies were last updated in [employer].
Home Medications with original date entered in [employer]
Allergy/Medication List:
Allergies
Allergy/AdvReac Type Severity Reaction Status Date / Time
apple Allergy Tongue Verified 11/12/24 11:07
Swelling
Penicillins Allergy Rash Verified 11/12/24 11:07
Home Medications
bupropion HCl 300 mg 24 hr tablet, extended release 300 mg PO DAILY depression/anxiety 05/07/24
fluoxetine 40 mg capsule 40 mg PO DAILY depression/anxiety 05/07/24
acetaminophen 500 mg tablet (Tylenol Extra Strength) 1,000 mg PO DAILYPRN PRN mild pain 11/12/24
Review of Systems
-
History Source: Patient
Constitutional: Reports No Symptoms
EENT: Reports No Symptoms
Respiratory: Reports No Symptoms
Cardiac: Reports No Symptoms
Abdomen/GI: Reports Nausea, Diarrhea and Other (dry heaves )
: Reports No Symptoms
Musculoskeletal: Reports No Symptoms
Skin: Reports No Symptoms
Neurological: Reports Other (tremors )
Endocrine: Reports No Symptoms
Hematologic/Lymphatic: Reports No Symptoms
Psych: Reports No Symptoms
Physical Exam
Vital Signs
Vital Signs
Temp Pulse Resp BP Pulse Ox
98.0 F 93 29 123/67 100
11/12/24 11:07 11/12/24 13:15 11/12/24 13:15 11/12/24 13:08 11/12/24 13:26
Physical Exam
General: Well Developed, Well Nourished, No Apparent Distress, Comfortable, Conversant and Obese
HEENT: NormoCephalic, Moist mucous membranes, Atraumatic, Nose Appears Normal and Ears Appear Normal
Respiratory: Clear and Decreased Breath Sounds
Cardiac: S1/S2, Regular Rhythm and Tachycardia
Breast: Deferred by me
GI: Soft, Non Tender, Non Distended and Normal Bowel Sounds
Rectal: Deferred by Provider
Genito-urinary: Deferred by me
Musculoskeletal: No Clubbing, No Cyanosis and No Edema
Skin: Warm and IV/Catheter Site
Neuro: Awake, Alert, AO x 3, Nonfocal/grossly intact and Tremors
Psych: Intact Judgment/Insight
Laboratory Results
-
11/12/24 13:05
11/12/24 13:05
Laboratory Results
Total Bilirubin 1.6 mg/dl (0.2-1.3) H 11/12/24 13:05
AST 187 U/L (14-36) H 11/12/24 13:05
ALT 70 U/L (0-35) H 11/12/24 13:05
Alkaline Phosphatase 194 U/L (38-126) H 11/12/24 13:05
Troponin I < 0.012 ng/ml 11/12/24 13:05
Lipase 238 U/L (23-300) 11/12/24 13:05
Data Reviewed
-
Medical Tests (Nuc Med, Echo, EKG etc): Report Reviewed by me (EKG; SINUS TACHYCARDIA OTHERWISE NORMAL ECG)
Lab Data: Labs Reviewed by me (Na + 129, tot bili 1.6, AST 187, ALT 70, Alk Phos 194)
Impression/Plan
-
IMPRESSION/PLAN:
#transaminitis
#alcohol withdraw
#alcohol dependence
#hyponatremia
reports last drink 7 days ago
Na + 129, tot bili 1.6, AST 187, ALT 70, Alk Phos 194
EKG: SINUS TACHYCARDIA
OTHERWISE NORMAL ECG
- Admit to med/surg
- MSAS protocol
- phenobarb taper
- encourage continued alcohol cessation
#COPD
- DuoNeb PRN
- restart Albuterol HFA
- restart Spiriva upon discharge
#anxiety
#bipolar
- continue bupropion and fluoxetine
#Hx CVA?? (Terry [facility] Dec 2023)
#hypertension
#hypercholesterolemia
#NIDDM
Code status: full code
DVT prophylaxis: Lovenox Sq
--- NOTE | 2024-11-12 16:06 | W.PN.UPDATE ---
Update Note
Progress Note Update
This is an addendum to the H&P written by Surekha Garcias on 11/12/2024. Patient seen and examined independently with ADMINISTR[employer]IVE [employer]ICE.
59-year-old female past medical history of hypertension, hyperlipidemia, TIA/CVA, anxiety, bipolar disorder, alcohol use disorder, hyponatremia, COPD, diabetes, presenting with dry heaving and diarrhea with dark stool, tremors, shortness of breath.
Also with tremors.
Patient with acute alcohol withdrawal. Thiamine and folate, IV fluids, alcohol withdrawal protocol. Phenobarbital protocol.
Fecal occult reportedly negative at this time for GI bleeding.
[2024-11-12 16:25] LABS: TSH 4.56 uIU/ml (0.47-4.68)
--- NOTE | 2024-11-12 19:30 | PTCARENOTE ---
Pt brought to unit from ED via stretcher. Pt ambulated from stretcher to bed with standby assist of staff. Pt oriented to unit. Call light within reach. Plan of care ongoing.
[2024-11-12] MEDS: THIAMINE INJECTION 200 MG IV (20:04)
[2024-11-12] MEDS: LOVENOX 40 MG SC (20:04)
[2024-11-12 20:22] LABS: GGTP 409 U/L (12-43); Magnesium 2.0 mg/dl (1.6-2.3)
[2024-11-12] MEDS: PHENOBARBITAL 104 MG IV (20:25)
[2024-11-12] MEDS: PHENOBARBITAL 97.5 MG IV (21:31)
[2024-11-13] VITALS (7 sets, daily range): BP systolic 95–122; BP diastolic 66–83
[2024-11-13] MEDS: ATIVAN 1 MG PO ×4 (06:15→16:22)
[2024-11-13 06:43] LABS: Urine Character Clear (Clear)
[2024-11-13 07:02] LABS: Urine Red Blood Cell 0-2 /HPF (0-2)
[2024-11-13] MEDS: PHENOBARBITAL 97.5 MG IV ×3 (07:15→21:41)
[2024-11-13] MEDS: THIAMINE INJECTION 200 MG IV ×2 (07:18→19:57)
[2024-11-13] MEDS: PROZAC 40 MG PO (07:18)
[2024-11-13] MEDS: NSS 1000 IV (07:57)
[2024-11-13 08:40] LABS: Blood Urea Nitrogen 7 mg/dl (7-17); Calcium 8.0 mg/dl (8.4-10.2); Carbon Dioxide 19 mmol/L (22-30); Chloride 106 mmol/L (98-107); Estimated Creatinine Clearance 89 ml/min; Glucose 103 mg/dl (70-99); Potassium 3.7 mmol/L (3.5-5.1); Sodium 130 mmol/L (135-145); eGFR > 60.00
[2024-11-13] MEDS: FOLVITE 1 MG PO (09:32)
[2024-11-13] MEDS: WELLBUTRIN XL (24 hour extended release) 300 MG PO (09:32)
--- NOTE | 2024-11-13 12:13 | W.PN.HOSP.TC ---
Today's Communication/Plan
-
change to inpt
change IVF
fluid restrict
check stool for C. diff
Assessment / Plan
Assessment / Plan
pt is a 59 year old female
acute alcohol withdraw from alcohol dependency with elevated transaminases--last drink over 7 days ago per patient--change to admission status--left earlier in the month AMA--cont MSAS, phenobarb taper--needs [facility]
hyponatremia --likely due to ETOH use--follow--add fluid restriction--serum osmolality low but no urine ordered
diarrhea--with metabolic acidosis--HCO3 19--likely due to GI loss--change IVF to bicarb--check stool studies--said going on for 1 year--needs GI followup as outpt
COPD - DuoNeb PRN - restart Albuterol HFA - restart Spiriva upon discharge
anxiety/bipolar--likely medicating with ETOH - continue bupropion and fluoxetine
Hx CVA?? ([facility] Dec 2023)
essential hypertension--meds as able
HLD--meds as able
NIDDM --SSI, cont meds as able
DVT proph
code status--full code
Anticipated Discharge: > 48 hours
Subjective/Interval History
-
Date of Service: November 13, 2024
pt shaky, c/o diarrhea
Objective Data
-
Labs:
Laboratory Results
11/13/24
07:22
Sodium 130 L
Potassium 3.7
Chloride 106
Carbon Dioxide 19 L
BUN 7
Creatinine 0.5 L
Glucose 103 H
Calcium 8.0 L
Vital Signs:
max temp for 24 hours
11/12/24
23:10
Temp 98.6 F
Vital Signs
Temp Pulse Resp BP Pulse Ox
97.5 F 63 16 121/83 96
11/13/24 11:02 11/13/24 11:02 11/13/24 11:02 11/13/24 11:02 11/13/24 11:02
I&O
11/12/24 11/13/24 11/14/24
06:59 06:59 06:59
Intake Total 120 / 120
Balance 120 / 120
Review of Systems
-
All other systems: Reviewed and negative
Abdomen/GI: Reports Diarrhea
Neuro: Reports Tremors
Psych: Reports Anxious
Physical Exam
-
General: Well Developed, Well Nourished and No Apparent Distress
HEENT: Normocephalic and Atraumatic
Respiratory: Clear to Auscultation; Negative Wheezes, Rales, Rhonchi or Crackles
Cardiac: Regular Rhythm, S1/S2 and Tachycardic; Negative Murmur
GI: Soft, Nontender, Nondistended and Normal Bowel Sounds
Musculoskeletal: No Clubbing, No Cyanosis and No Edema
Neuro: Awake and Tremors
[2024-11-13] MEDS: SODIUM BICARBONATE 1150 MEQ IV (13:45)
[2024-11-13 16:27] LABS: Glucose - Point of Care 120 mg/dl (70-99)
[2024-11-13] MEDS: LOVENOX 40 MG SC (17:02)
--- NOTE | 2024-11-13 17:03 | CM ---
Addendum entered by Delfina Bermudez 11/13/24 17:12:
OBS status - form explained & placed in chart
Original Note:
Patient seen at bedside
IA completed
CM consult completed-substance abuse counseling
patient agreeable to [facility] - resources given to patient
spoke with Lukas from [facility] referral made - will be in tomorrow to see patient
Lukas stated that he saw patient last month and gave her resources for outpatient rehab
Patient lives in a 1 story home with her SO, 1 FATUMA
PLOF: Independent
DME: [employer] More
Has had Terry AGUIRRE in past/stated had been at an inpatient alcohol rehab on [facility] (could not recall name) in Feb 2024
PCP: Sue Espinal
Pharmacy: [facility]
PLAN: TBD, [facility] will visit patient, CM to follow for needs
[2024-11-13] MEDS: IMODIUM 2 MG PO (18:06)
[2024-11-13 21:30] LABS: Glucose - Point of Care 123 mg/dl (70-99)
[2024-11-14 03:00] VITALS: BP 116/82
[2024-11-14] MEDS: SODIUM BICARBONATE 1150 MEQ IV (05:51)
[2024-11-14 06:00] VITALS: BMI 26.4
[2024-11-14 06:05] LABS: Hematocrit 30.7 % (37.0-47.0); Hemoglobin 10.6 g/dL (12.0-16.0); Mean Corp Hgb Conc. 34.5 g/dL (33.0-37.0); Mean Corpuscular Volume 100.3 fL (81.0-99.0); Platelet Count 172 10^3/uL (130-400); Red Cell Dist. Width 12.5 % (11.5-14.5)
[2024-11-14 06:32] LABS: ALT (SGPT) 56 U/L (0-35); AST (SGOT) 109 U/L (14-36); Albumin 2.9 g/dl (3.5-5.0); Alkaline Phosphatase 128 U/L (38-126); Blood Urea Nitrogen 5 mg/dl (7-17); Calcium 8.2 mg/dl (8.4-10.2); Carbon Dioxide 26 mmol/L (22-30); Chloride 105 mmol/L (98-107); Estimated Creatinine Clearance 89 ml/min; Glucose 97 mg/dl (70-99); Magnesium 2.1 mg/dl (1.6-2.3); Potassium 3.4 mmol/L (3.5-5.1); Sodium 135 mmol/L (135-145); Total Protein 5.2 g/dl (6.3-8.2); eGFR > 60.00
[2024-11-14 07:00] VITALS: BP 121/80
[2024-11-14 07:38] LABS: Glucose - Point of Care 119 mg/dl (70-99)
[2024-11-14] MEDS: PHENOBARBITAL 97.5 MG IV ×2 (07:48→17:19)
[2024-11-14] MEDS: WELLBUTRIN XL (24 hour extended release) 300 MG PO (07:49)
[2024-11-14] MEDS: KCL 40 MEQ PO (07:49)
[2024-11-14] MEDS: FOLVITE 1 MG PO (07:49)
[2024-11-14] MEDS: PROZAC 40 MG PO (07:49)
[2024-11-14] MEDS: THIAMINE INJECTION 200 MG IV ×2 (07:50→20:24)
--- NOTE | 2024-11-14 10:57 | W.PN.HOSP.TC ---
Today's Communication/Plan
-
await [facility]
anticipate d/c in 1-2 days
Assessment / Plan
Assessment / Plan
pt is a 59 year old female
acute alcohol withdraw from alcohol dependency with elevated transaminases (improving)--last drink over 7 days ago per patient---left earlier in the month AMA--cont MSAS, phenobarb taper--needs [facility]
hyponatremia --resolved----likely due to ETOH use--follow--added fluid restriction--serum osmolality low but no urine ordered
diarrhea--resolved--with metabolic acidosis--HCO3 19--likely due to GI loss--change IVF to bicarb with improvement--can stop IVF--check stool studies--said going on for 1 year--needs GI followup as outpt
COPD - DuoNeb PRN - restart Albuterol HFA - restart Spiriva upon discharge
anxiety/bipolar--likely medicating with ETOH - continue bupropion and fluoxetine
Hx CVA?? ([facility]erry [facility] Dec 2023)
essential hypertension--meds as able
HLD--meds as able
NIDDM --SSI, cont meds as able
DVT proph
code status--full code
Anticipated Discharge: Within 24 hours
Subjective/Interval History
-
Date of Service: November 14, 2024
pt still feels 'anxious inside'
diarrhea much improved
Objective Data
-
Labs:
Laboratory Results
11/14/24
04:24
WBC 4.2 L
Hgb 10.6 L D
Hct 30.7 L
Plt Count 172
Sodium 135
Potassium 3.4 L
Chloride 105
Carbon Dioxide 26
BUN 5 L
Creatinine 0.5 L
Glucose 97
Calcium 8.2 L
Total Bilirubin 0.8
AST 109 H
ALT 56 H
Alkaline Phosphatase 128 H
Vital Signs:
max temp for 24 hours
11/14/24
03:00
Temp 98.1 F
Vital Signs
Temp Pulse Resp BP Pulse Ox
98.2 F 92 17 121/80 98
11/14/24 07:00 11/14/24 07:00 11/14/24 07:00 11/14/24 07:00 11/14/24 07:00
I&O
11/13/24 11/14/24 11/15/24
06:59 06:59 06:59
Intake Total 2520 / 2520
Balance 2520 / 2520
Review of Systems
-
All other systems: Reviewed and negative
Psych: Reports Anxious
Physical Exam
-
General: Well Developed, Well Nourished and No Apparent Distress
HEENT: Normocephalic and Atraumatic
Respiratory: Clear to Auscultation; Negative Wheezes or Rhonchi
Cardiac: Regular Rhythm and S1/S2; Negative Murmur
GI: Soft, Nontender, Nondistended and Normal Bowel Sounds
Musculoskeletal: No Clubbing, No Cyanosis and No Edema
Neuro: Awake
Psych: Anxious
[2024-11-14 11:00] VITALS: BP 105/68
[2024-11-14] MEDS: IMODIUM 2 MG PO (11:53)
[2024-11-14 12:30] LABS: Glucose - Point of Care 127 mg/dl (70-99)
--- NOTE | 2024-11-14 13:19 | CM ---
[facility] will be [facility] to see the patient tomorrow.
PLAN: home, ?outpatient alcohol rehab vs. inpatient
[2024-11-14 15:00] VITALS: BP 115/74
[2024-11-14 16:35] LABS: Glucose - Point of Care 121 mg/dl (70-99)
[2024-11-14] MEDS: LOVENOX 40 MG SC (17:19)
[2024-11-14 19:00] VITALS: BP 96/72
[2024-11-14 21:44] LABS: Glucose - Point of Care 121 mg/dl (70-99)
[2024-11-14] MEDS: LUMINAL 64.8 MG PO (21:47)
[2024-11-14 23:00] VITALS: BP 98/82
[2024-11-15 03:00] VITALS: BP 101/82
[2024-11-15 06:00] VITALS: BMI 26.1
[2024-11-15] MEDS: TYLENOL 650 MG PO ×2 (06:02→15:37)
[2024-11-15 07:00] VITALS: BP 124/70
[2024-11-15 07:30] LABS: Glucose - Point of Care 123 mg/dl (70-99)
[2024-11-15 07:41] LABS: Hematocrit 32.9 % (37.0-47.0); Hemoglobin 11.2 g/dL (12.0-16.0); Mean Corp Hgb Conc. 34.0 g/dL (33.0-37.0); Mean Corpuscular Volume 101.5 fL (81.0-99.0); Platelet Count 235 10^3/uL (130-400); Red Cell Dist. Width 12.8 % (11.5-14.5)
[2024-11-15 07:46] LABS: ALT (SGPT) 52 U/L (0-35); AST (SGOT) 88 U/L (14-36); Albumin 3.3 g/dl (3.5-5.0); Alkaline Phosphatase 146 U/L (38-126); Blood Urea Nitrogen 4 mg/dl (7-17); Calcium 8.5 mg/dl (8.4-10.2); Carbon Dioxide 23 mmol/L (22-30); Chloride 105 mmol/L (98-107); Estimated Creatinine Clearance 89 ml/min; Glucose 104 mg/dl (70-99); Magnesium 1.9 mg/dl (1.6-2.3); Potassium 3.8 mmol/L (3.5-5.1); Sodium 134 mmol/L (135-145); Total Protein 5.7 g/dl (6.3-8.2); eGFR > 60.00
[2024-11-15] MEDS: FOLVITE 1 MG PO (08:22)
[2024-11-15] MEDS: LUMINAL 64.8 MG PO ×3 (08:22→22:02)
[2024-11-15] MEDS: WELLBUTRIN XL (24 hour extended release) 300 MG PO (08:22)
[2024-11-15] MEDS: PROZAC 40 MG PO (08:23)
[2024-11-15] MEDS: THIAMINE INJECTION 200 MG IV (08:23)
[2024-11-15 11:03] VITALS: BP 105/70
[2024-11-15 11:48] LABS: Glucose - Point of Care 147 mg/dl (70-99)
[2024-11-15 15:00] VITALS: BP 116/73
--- NOTE | 2024-11-15 15:01 | CM ---
Patient seen at bedside with physicians. Patient stated that she would go home with boyfriend and she declined to go to inpatient facility. Patient to be seen again by [facility] in am. CM will continue to follow for discharge planning needs.
Plan; home with boyfriend and follow up with [facility]
--- NOTE | 2024-11-15 15:09 | W.PN.HOSP.TC ---
Addendum entered and electronically signed by Phoebe Levy MD 11/15/24 15:31:
I saw and evaluated the patient independently. I reviewed the resident�s note and agree with findings and plan as documented by Dr. Mcleod.
GENERAL: well developed, well nourished, female in no apparent distress--very jittery with choreatic movements--can't sit still
HEENT: NC/AT
HEART: regular rate and rhythm, +S1, +S2
LUNGS : clear to auscultation bilaterally
ABDOM: soft, nontender, nondistended, + bowel sounds
EXT: no cyanosis, clubbing, or edema
NEUROLOGIC: jittery
acute alcohol withdraw from alcohol dependency with elevated transaminases (improving)--last drink over 7 days ago per patient---left earlier in the month AMA--cont MSAS, phenobarb taper--needs [facility]--refusing inpatient treatment yet worried about
going home with ETOH on premises
hyponatremia --resolved----likely due to ETOH use--follow--added fluid restriction--serum osmolality low but no urine ordered
diarrhea--resolved--with metabolic acidosis--HCO3 19--likely due to GI loss--changed IVF to bicarb with improvement--can stop IVF-- stool studies neg--said going on for 1 year--needs GI followup as outpt
COPD - DuoNeb PRN - restart Albuterol HFA - restart Spiriva upon discharge
anxiety/bipolar--likely medicating with ETOH - continue bupropion and fluoxetine
Hx CVA?? (Terry De León Dec 2023)
essential hypertension--meds as able
HLD--meds as able
NIDDM --can stop SSI, cont meds as able
DVT proph
code status--full code
anticipate home in AM
Original Note:
Today's Communication/Plan
-
Plan to discharge to home tomorrow
Assessment / Plan
Assessment / Plan
Assessment
This is a 59 y/o female with pmhx of COPD, Essential Hypertension, Hyperlipiedmia, type 2 diabetes mellitus, Bipolar Disorder and Alcohol abuse who presented to the ER on 11/12/2024 after complete cessation of alcohol consumption 1 week prior,
resulting in severe diarrhea, tremors and anxiety. She had previously been admitted to this same facility from 10/20-10/22 for acute alcohol withdrawal but left AMA.
Plan
Acute Alcohol Withdrawal
-Pt not currently interested in pursuing inpatient rehab treatment
-Plan to discharge tomorrow
-Encouraged continued alcohol cessation at home
COPD
-Continue DuoNeb PRN for shortness of breath, albuterol HFA
Bipolar disorder with anxiety
-Continue bupropion and fluoxetine
-Encouraged follow up with outpatient psych
Essential Hypertension
-Continue home meds
HLD
-Continue home meds
Type 2 Diabetes Mellitus
-Continue home meds
Code status--full code
Anticipated Discharge: Within 24 hours
Subjective/Interval History
-
Date of Service: November 15, 2024
Patient reports she is doing well today. Overnight she did experience some anxiety about her hand tremors, but expressed some concern about returning home to her boyfriend as there is alcohol at there. She later expressed confidence that she would
be successful in maintaining alcohol cessation at home, and was not interested in rehab due to previously going to a rehab and finding it unhelpful.
Objective Data
-
Labs:
Laboratory Results
11/15/24
06:07
WBC 5.3
Hgb 11.2 L
Hct 32.9 L
Plt Count 235 D
Sodium 134 L
Potassium 3.8
Chloride 105
Carbon Dioxide 23
BUN 4 L
Creatinine 0.5 L
Glucose 104 H
Calcium 8.5
Total Bilirubin 0.7
AST 88 H
ALT 52 H
Alkaline Phosphatase 146 H
Vital Signs:
Vital Signs
Temp Pulse Resp BP Pulse Ox
98.0 F 86 17 105/70 95
11/15/24 11:03 11/15/24 11:03 11/15/24 11:03 11/15/24 11:03 11/15/24 11:03
I&O
11/14/24 11/15/24 11/16/24
06:59 06:59 06:59
Intake Total 2520 / 2520 600 / 600
Balance 2520 / 2520 600 / 600
Review of Systems
-
History Source: Patient
Constitutional: Reports No Symptoms
Respiratory: Reports No Symptoms
Cardiac: Reports No Symptoms
Neuro: Reports Tremors
Psych: Reports Anxious
Physical Exam
-
General: Well Developed, Well Nourished and Comfortable
HEENT: Normocephalic
Respiratory: Clear to Auscultation
Cardiac: Regular Rhythm and S1/S2
Skin: Warm and Dry
Neuro: Awake, Alert, Oriented and Tremors
Psych: Anxious
[2024-11-15 16:36] LABS: Glucose - Point of Care 145 mg/dl (70-99)
[2024-11-15] MEDS: LOVENOX 40 MG SC (17:16)
[2024-11-15 19:00] VITALS: BP 108/68
[2024-11-15] MEDS: VITAMIN B1 100 MG PO (20:17)
[2024-11-15 21:27] LABS: Glucose - Point of Care 125 mg/dl (70-99)
[2024-11-15 23:00] VITALS: BP 119/76
[2024-11-16 03:00] VITALS: BP 117/79
[2024-11-16 03:10] VITALS: BMI 26.0
[2024-11-16 06:12] LABS: Hematocrit 31.1 % (37.0-47.0); Hemoglobin 10.7 g/dL (12.0-16.0); Mean Corp Hgb Conc. 34.4 g/dL (33.0-37.0); Mean Corpuscular Volume 100.3 fL (81.0-99.0); Platelet Count 243 10^3/uL (130-400); Red Cell Dist. Width 12.6 % (11.5-14.5)
[2024-11-16 06:39] LABS: ALT (SGPT) 48 U/L (0-35); AST (SGOT) 72 U/L (14-36); Albumin 3.1 g/dl (3.5-5.0); Alkaline Phosphatase 125 U/L (38-126); Blood Urea Nitrogen 4 mg/dl (7-17); Calcium 8.4 mg/dl (8.4-10.2); Carbon Dioxide 23 mmol/L (22-30); Chloride 107 mmol/L (98-107); Estimated Creatinine Clearance 89 ml/min; Glucose 110 mg/dl (70-99); Potassium 3.8 mmol/L (3.5-5.1); Sodium 136 mmol/L (135-145); Total Protein 5.7 g/dl (6.3-8.2); eGFR > 60.00
[2024-11-16 07:46] VITALS: BP 122/84
[2024-11-16 07:58] LABS: Glucose - Point of Care 114 mg/dl (70-99)
[2024-11-16] MEDS: WELLBUTRIN XL (24 hour extended release) 300 MG PO (08:23)
[2024-11-16] MEDS: FOLVITE 1 MG PO (08:23)
[2024-11-16] MEDS: LUMINAL 64.8 MG PO ×2 (08:23→14:24)
[2024-11-16] MEDS: VITAMIN B1 100 MG PO (08:23)
[2024-11-16] MEDS: PROZAC 40 MG PO (08:24)
[2024-11-16 11:15] VITALS: BP 114/67
[2024-11-16 12:07] LABS: Glucose - Point of Care 133 mg/dl (70-99)
--- NOTE | 2024-11-16 13:11 | W.PN.HOSP.TC ---
Addendum entered and electronically signed by Phoebe Levy MD 11/16/24 14:22:
I saw and evaluated the patient independently. I reviewed the resident�s note and agree with findings and plan as documented by Dr. Mcleod.
GENERAL: well developed, well nourished, female in no apparent distress--very jittery with choreatic movements better than yesterday
HEENT: NC/AT
HEART: regular rate and rhythm, +S1, +S2
LUNGS : clear to auscultation bilaterally
ABDOM: soft, nontender, nondistended, + bowel sounds
EXT: no cyanosis, clubbing, or edema
NEUROLOGIC: jittery
acute alcohol withdraw from alcohol dependency with elevated transaminases (improving)--last drink over 7 days ago per patient---left earlier in the month AMA--cont MSAS, phenobarb taper (given the fact that she is going back to a house with ETOH,
will not send on benzos or phenobarb)--needs [facility]--refusing inpatient treatment yet worried about going home with ETOH on premises
hyponatremia --resolved----likely due to ETOH use--follow--added fluid restriction--serum osmolality low but no urine ordered
diarrhea--resolved--with metabolic acidosis--HCO3 19--likely due to GI loss--changed IVF to bicarb with improvement-- stopped IVF-- stool studies neg--said going on for 1 year--needs GI followup as outpt
COPD - DuoNeb PRN - restart Albuterol HFA - restart Spiriva upon discharge
anxiety/bipolar--likely medicating with ETOH - continue bupropion and fluoxetine
Hx CVA?? (Terry De León Dec 2023)
essential hypertension--meds as able
HLD--meds as able
NIDDM --can stop SSI, cont meds as able
DVT proph
code status--full code
Original Note:
Today's Communication/Plan
-
Discharge today
Assessment / Plan
Assessment / Plan
Assessment
This is a 59 y/o female with pmhx of COPD, Essential Hypertension, Hyperlipiedmia, type 2 diabetes mellitus, Bipolar Disorder and Alcohol abuse who presented to the ER on 11/12/2024 after complete cessation of alcohol consumption 1 week prior,
resulting in severe diarrhea, tremors and anxiety. She had previously been admitted to this same facility from 10/20-10/22 for acute alcohol withdrawal but left AMA.
Plan
Acute Alcohol Withdrawal
-Pt not currently interested in pursuing inpatient rehab treatment
-Plan to discharge today
-Encouraged continued alcohol cessation at home
COPD
-Continue albuterol HFA at home for shortness of breath
Bipolar disorder with anxiety
-Continue bupropion and fluoxetine
-Encouraged follow up with outpatient psych
Essential Hypertension
-Continue home meds
HLD
-Continue home meds
Type 2 Diabetes Mellitus without insulin dependence
-Continue home meds
Code status--full code
Anticipated Discharge: Today
Subjective/Interval History
-
Date of Service: November 16, 2024
Patient reports feeling good and ready to go home. We discussed her discharge plan. She is still not interested in pursing treatment with a rehab, and would prefer to go home to her boyfriend. She had initially expressed some concerns to me
yesterday about going home due to the presence of alcohol at home, but later stated she would be fine and confirmed she is confident in her ability to maintain her sobriety. She continues to report anxiety which has returned to its baseline level,
as reports she no longer has any diarrhea that was present on admission.
Objective Data
-
Labs:
Laboratory Results
11/16/24
05:47
WBC 5.3
Hgb 10.7 L
Hct 31.1 L
Plt Count 243
Sodium 136
Potassium 3.8
Chloride 107
Carbon Dioxide 23
BUN 4 L
Creatinine 0.5 L
Glucose 110 H
Calcium 8.4
Total Bilirubin 0.5
AST 72 H
ALT 48 H
Alkaline Phosphatase 125
Vital Signs:
Vital Signs
Temp Pulse Resp BP Pulse Ox
98.3 F 90 14 114/67 97
11/16/24 11:15 11/16/24 11:15 11/16/24 11:15 11/16/24 11:15 11/16/24 11:15
I&O
11/15/24 11/16/24 11/17/24
06:59 06:59 06:59
Intake Total 600 / 600 840 / 840
Balance 600 / 600 840 / 840
Review of Systems
-
History Source: Patient
Constitutional: Reports No Symptoms
Respiratory: Reports No Symptoms
Cardiac: Reports No Symptoms
Abdomen/GI: Reports No Symptoms
Psych: Reports Anxious
Physical Exam
-
General: Well Developed, Well Nourished, No Apparent Distress and Comfortable
HEENT: Normocephalic
Respiratory: Clear to Auscultation
Cardiac: Regular Rhythm and S1/S2
Skin: Warm and Dry
Neuro: Awake, Alert and Oriented
--- NOTE | 2024-11-16 13:16 | W.DCSUMMARY ---
Addendum entered and electronically signed by Phoebe Levy MD 11/16/24 14:23:
Read, reviewed, and agree. See same day progress note for additional details. Time spent coordinating care, DC planning, review of DC plan of care with resident, transition of care, review of records in EMR, med rec, consults, notes, d/w
consultants, nursing, family, and CM = 34 minutes
Original Note:
Discharge Summary
Discharge Data
Date of Admission: 11/13/24
Date of Discharge: 11/16/24
-
Pending Results: No
Hospital Course
This is a 59 y/o female with pmhx of COPD, essential hypertension, hyperlipidemia, TIA, type 2 diabetes mellitus, Bipolar disorder and alcohol abuse who presented to the ER on 11/12/2024 after complete cessation of alcohol consumption 1 week prior to
her visit. She subsequently developed severe diarrhea with dark stools, tremors and anxiety. She had not taking anything for her symptoms. She was previously admitted from 10/20-10/22 for acute alcohol withdrawal, for which she left AMA. In the ED, she
was also found to have hyponatremia.
In the hospital, she was given thiamine, folate, IV fluids with bicarbonate and started on an alcohol withdrawal protocol including phenobarbital. A stool test for C. Diff was negative, as was fecal occult blood test. Her transaminases continued to
trend downwards during the course of her hospitalization and her hyponatremia resolved. [facility] was consulted, though patient was not interested in pursuing treatment with rehab. She was discharged to home once medically stable and encouraged to
avoid any consumption of alcohol, and to follow up with her PCP outpatient.
Discharge Plan
-
Patient Disposition: Home (Routine Discharge)
Discharge Diagnosis/Procedures: Acute Alcohol Withdrawal from Alcohol Dependency with Elevated Transaminases, Hyponatremia, Diarrhea, COPD, Bipolar Disorder with Anxiety, Essential Hypertension, Hyperlipidemia, Type 2 Diabetes Mellitus without
Insulin Dependence
Condition: Good
Diet: No restrictions
Additional Diets: No alcohol
Activity: No restrictions
Driving Restrictions: As prior to admission
Bathing Restrictions: None
Referrals:
Sue Espinal DO [Family Provider, Family Practice]
Prescriptions:
New
folic acid 1 mg Tablet
1 mg PO DAILY Qty: 30 0RF
albuterol sulfate 90 mcg/actuation Hfa Aerosol Inhaler
2 puff inhalation R Q4HPRN PRN (Reason: wheezing/shortness of breath) 30 Days Qty: 6.7 0RF
thiamine mononitrate (vit B1) 100 mg Tablet
100 mg PO BID Qty: 30 0RF
phenobarbital 32.4 mg Tablet
64.8 mg PO TID 2 Days Qty: 12 0RF
phenobarbital 32.4 mg Tablet
32.4 mg PO TID 2 Days Qty: 6 0RF
Continued
fluoxetine 40 mg capsule
40 mg PO DAILY
bupropion HCl 300 mg tablet extended release 24 hr
300 mg PO DAILY
Discontinued
acetaminophen [Tylenol Extra Strength] 500 mg Tablet
1,000 mg PO DAILYPRN PRN (Reason: mild pain)
Discharge Orders:
Discharge Patient (As Directed); Ordered 11/16/24
Ordered By: Sydni Mcleod
Discharge Date and Time
Print Language: ICELANDIC
--- NOTE | 2024-11-16 13:45 | CM ---
Patient seen at bedside on with physicians. Patient for discharge and declined [facility] supports. Patient plan is to go home with significant other and will follow up with [facility] as she needs. CM will continue to follow for discharge planning
needs.
Plan; home with no needs.
== END 2024-11-16 14:30 | disposition home or self-care (01) | DRG 897 ==
LOC: 3 WEST ACU 12:17
PROVIDERS: Emergency Medicine; Nurse Practitioner Family; ADMITTING PHYSICIAN Hospitalist; ATTENDING PHYSICIAN Internal Medicine; EMERGENCY PHYSICIAN Emergency Medicine; FAMILY PHYSICIAN Family Medicine
DX: F10.239 Alcohol dependence with withdrawal, unspecified (principal); E87.1 Hypo-osmolality and hyponatremia; E87.20 Acidosis, unspecified; F17.200 Nicotine dependence, unspecified, uncomplicated; J44.9 Chronic obstructive pulmonary disease, unspecified; F41.9 Anxiety disorder, unspecified; F31.9 Bipolar disorder, unspecified; I10 Essential (primary) hypertension; E78.00 Pure hypercholesterolemia, unspecified; E11.9 Type 2 diabetes mellitus without complications; Z79.4 Long term (current) use of insulin; Z79.899 Other long term (current) drug therapy
CPT/HCPCS: 80048; 80053; 80306; 80307; 81003; 81015; 82010; 82077; 82962; 82977; 83690; 83735; 83930; 84100; 84443; 84484; 85025; 85027; 87324; 87449; 93005; 96361; 96374; 96376; 97163; 99284; 99406